=== PATIENT | male | born 1980 | race Caucasian/White ===

== ENCOUNTER 2020-12-15 16:47 | Inpatient (IN) | payer MEDICAID ==
[~2020-12-15] VITALS: Ht 182.9 cm; Wt 64.0 kg
[2020-12-15] MEDS ORDERED: LORazepam 1 MG tablet PO PRN (21:40)
[2020-12-15] MEDS ORDERED: acetaminophen 325mg tablet PO PRN ×2 (21:40)
[2020-12-15] MEDS ORDERED: loperamide 2mg capsule PO PRN (21:40)
[2020-12-15] MEDS ORDERED: traZODone 50mg tablet PO PRN (21:40)
[2020-12-15] MEDS ORDERED: NICOTINE POLACRILEX 2 MG LOZENGE BC PRN (21:40)
[2020-12-15] MEDS ORDERED: magnesium hydroxide 30ml (MOM) UD suspension PO PRN (21:40)
[2020-12-15] MEDS ORDERED: mag hydrox/Alum hydrox/simeth 30ml oral suspension PO PRN (21:40)
[2020-12-15 21:53] VITALS: BP 124/81
--- NOTE | 2020-12-15 22:12 | NUR ---
NURSING ADMISSION NOTE PT arrived on [facility] on 12/15/20 at 2140 from [facility]. Pt offered a shower, but he declined. 2 RN skin check completed, belongings inventoried. 5150 advisement served, pt verbalized understanding. Pt has had intense suicidal ideation for the past 3 days. He states he is hearing voices telling him to kill himself. Pt states he would cut his throat and slit his wrists. He also states that if his uncles guns were not locked up he would have wanted to do it that way. Pt feels that he has nothing left to live for. Pt is currently residing in his girlfriends [place]. He sleeps in a tent and his girlfriend sleeps in another tent. He feels like his girlfriend is un-supportive. Past suicide attempt in 2019 by jumping off a bridge. Hx of multiple psychiatric hospitalizations and conservatorship. He is not currently conserved. Hx of schizophrenia, anxiety, depression, and insomnia.
[2020-12-15] MEDS ORDERED: OLAN10TA19 PO (22:19)
[2020-12-15] MEDS ORDERED: TRIH2TAB3 PO (22:19)
[2020-12-15] MEDS ORDERED: RISP2TAB85 PO (22:19)
[2020-12-15] MEDS ORDERED: BENZ1TAB8 PO (22:19)
[2020-12-15] MEDS ORDERED: risperiDONE 0.5mg tablet PO PRN (22:30)
[2020-12-15] MEDS ORDERED: benztropine 1mg tablet PO PRN (22:30)
[2020-12-16] MEDS: trihexyphenidyl 2mg tablet PO SCH ×2 (07:41→20:11)
[2020-12-16 07:51] VITALS: BP 129/68
[2020-12-16] MEDS: nicotine 21mg patch - 24 hr TD SCH (08:00)
[2020-12-16 08:34] LABS: CHOL/HDL RATIO 2.9 (0.00-4.99); CHOLESTEROL 132 MG/DL (0-200); HDL CHOLESTEROL 45 MG/DL (35-60); LDL CHOLESTEROL 82 MG/DL (50-100); TRIGLYCERIDES 33 MG/DL (20-135)
[2020-12-16 08:41] LABS: HEMOGLOBIN A1C 5.5 % (4.5-6.2)
--- NOTE | 2020-12-16 11:11 | NUR ---
Nursing Progress Note: Legal hold:5150 Client on voluntary/involuntary status for DTS. Report received from nurse with use of SBAR from Mary MOREJON Why are they here: PT arrived on [facility] on 12/15/[address] [facility]. Pt offered a shower, but he declined. 2 RN skin check completed, belongings inventoried. 5150 advisement served, pt verbalized understanding. Pt has had intense suicidal ideation for the past 3 days. He states he is hearing voices telling him to kill himself. Pt states he would cut his throat and slit his wrists. He also states that if his uncles guns were not locked up he would have wanted to do it that way. Pt feels that he has nothing left to live for. Pt is currently residing in his girlfriends uncles [facility]. He sleeps in a tent and his girlfriend sleeps in another tent. He feels like his girlfriend is un-supportive. Past suicide attempt in 2019 by jumping off a bridge. Hx of multiple psychiatric hospitalizations and conservatorship. He is not currently conserved. Hx of schizophrenia, anxiety, depression, and insomnia. Assessment What has happened this shift: Patient was up early this morning, this wrtier introduced my self, patient answers all question with yes cristopher and is very polite.Hakann states that he is here because he was taking his medication all wrong, I was taking them backwards. Patient denies drup use other thatn weed, "I gave my [place] and pipe to Елена at [facility] when I went there for help. I live in a tent in a horse [place], I feed all the horses and I have lived there for the past 12 years. Patient request a shower and have a staff watch him shave. Patient states he will return to his tent in the [place]. Today patient states he will not harm him self while here at [facility], but needs medication adjustment before he can contract for safety for discharge. S/I, H/I: Denies, "I needed help so I am already feeling better" A/VH: Denies Sleep:Per NOC 6.5 ADL's: Independent Group attendance:N/A Were meds taken:Yes, Gladly Any med S/E None noted Mental Status Exam Appearance:unkempt Eye contact:Good Behavior: some what hypo manic Speech:normal rate and rythum Mood:"I am glas I am safe" Affect:congurent with mood Thought process:intact, forward thinking Thought Content:"How long do you think I will be here" Cognition:good Insight:fair, "I went to [facility] because I was feeling suicidal" Judgment:fair Interventions PRN's used: none Therapeutic interventions:Maintained a safe and supportive environment, ensured contract for safety, provided clear and simple instructions, monitored behaviors and need for intervention, provided active listening and positive encouragement, and maintained Q 15min safety checks. Restraints/seclusion/emergency medication: N/A Restraints/seclusion/emergency medication:N/A Justification of Continued Inpatient Treatment: Roberth was admitted last evening for suicidal thougths with a plan to cut self or use a gun that he has access to. Today patient needs more time in this controlled enviorment along with medication evaluation. Patient is a long time patient with [facility] and is familiar with his services.
--- NOTE | 2020-12-16 11:51 | NUR ---
Assessment Presenting Issues: Pt was 5150 by [facility] due to concerns associated with DTS, and sent to [facility] for medical clearance. Pt admitted to [facility] for stabilization support. Interventions: SS met w/pt and utilized Motivational Interviewing & CBT strategies to complete a bio-psychosocial assessment & treatment planning. Pt signed KAROLINA & TP. Plan: SS will continue to engage pt in tp activities and dcp when appropriate. TERELL Huynh Addendum: 12/17/20 at 1208 by Lorena Blanc SS Amended: Links added.
[2020-12-16] MEDS: cephalexin 500mg capsule PO SCH (16:19)
--- NOTE | 2020-12-16 17:20 | NUR ---
Patient has lateral heel blisters from wearing his boots, approx 5-6cm across on both, patient is started on Keflex, patient took first does and tolerated well. Per Dr. Holloway keep dry and clean.
[2020-12-16 19:53] VITALS: BP 116/84
[2020-12-16] MEDS: lactobacillus rhamnosus 10,000 MMU CELLS/CAPSULE PO SCH (20:11)
[2020-12-16] MEDS ORDERED: olanzapine 10mg tablet PO SCH (21:00)
--- NOTE | 2020-12-17 01:51 | NUR ---
Nursing Progress Note: Legal hold: 5150 Client on involuntary status for DTS. Report received from DARLEEN Sears with use of SBAR Why are they here: PT arrived on [facility] on 12/15/20 at 2140 from [facility]. Pt offered a shower, but he declined. 2 RN skin check completed, belongings inventoried. 5150 advisement served, pt verbalized understanding. Pt has had intense suicidal ideation for the past 3 days. He states he is hearing voices telling him to kill himself. Pt states he would cut his throat and slit his wrists. He also states that if his uncles guns were not locked up he would have wanted to do it that way. Pt feels that he has nothing left to live for. Pt is currently residing in his girlfriends uncles barn. He sleeps in a tent and his girlfriend sleeps in another tent. He feels like his girlfriend is un-supportive. Past suicide attempt in 2019 by jumping off a bridge. Hx of multiple psychiatric hospitalizations and conservatorship. He is not currently conserved. Hx of schizophrenia, anxiety, depression, and insomnia. Assessment What has happened this shift: The patient was seen at bedside for 1:1. He reports being, "much better." He says now that he's back on his medication, and taking it correctly, his voices have resolved, and he's no longer feeling suicidal. When asked about his mood, he stated, "doing great, mood is good." The patient feels as if he will be good enough to discharge when his hold is up. S/I, H/I: Denies. A/VH: Denies. Sleep: See sleep assessment ADL's: Independent Group attendance:N/A Were meds taken: Yes Any med S/E: None reported or observed. Mental Status Exam Appearance: Clean, well groomed in his own street clothes. Eye contact: Good Behavior: Pleasant, cooperative, outgoing. Speech: Normal Mood: "Great" Affect: Bright Thought process: Logical, linear, goal oriented. Thought Content: Discharge Cognition: A/O X4 Insight: Fair Judgment: Poor Interventions PRN's used: none Therapeutic interventions:Maintained a safe and supportive environment, ensured contract for safety, provided clear and simple instructions, monitored behaviors and need for intervention, provided active listening and positive encouragement, and maintained Q 15min safety checks. Restraints/seclusion/emergency medication: Justification of Continued Inpatient Treatment: Patient was admitted last evening for suicidal thoughts with a plan to cut self or use a gun that he has access to. Today, patient needs more time in this controlled environment along with medication evaluation. Patient is a long time patient with [facility] and is familiar with his services.
[2020-12-17 07:48] VITALS: BP 112/81
[2020-12-17] MEDS: lactobacillus rhamnosus 10,000 MMU CELLS/CAPSULE PO SCH (07:50)
[2020-12-17] MEDS: trihexyphenidyl 2mg tablet PO SCH (07:50)
[2020-12-17] MEDS: cephalexin 500mg capsule PO SCH ×2 (07:50)
[2020-12-17] MEDS: nicotine 21mg patch - 24 hr TD SCH (07:51)
--- NOTE | 2020-12-17 12:23 | NUR ---
CM: SS had t/c with pt's CM-Dominga @[facility] and inquired about support pt currently receives via [facility]. Per t/c Dominga will contact pt following d/c to assess for any additional support that pt may need. Plan: SS will engage pt's [facility] CM in dcp activities when appropriate. QUIN HuynhW Addendum: 12/17/20 at 1225 by Lorena Blanc Amended: Links added.
--- NOTE | 2020-12-17 14:04 | NUR ---
Pt. attended group today. We discussed the three different communication styles that people can fall into it Passive, Assertive and Aggressive. They were asked to try to express which one they felt their communication style fell into and then which one they would like to be. Pt. was in a bright mood, he was open and friendly. He engaged immediately in group, asking questions and volunteering to read parts of the worksheet for the group. He identified himself as having some passive traits but felt he also leaned toward Assertive in his style of communication. He was alert and oriented X 4. His thought content was WNL. His thought process was linear and goal directed toward the task at hand. He reported at the end of the session that he had enjoyed the group. He reported he is looking forward to going home tomorrow and denied feeling suicidal today. LOS- Ayah Sandy LCSW
[2020-12-17] MEDS ORDERED: TRIH5TAB3 PO (15:21)
[2020-12-17] MEDS ORDERED: RISP2TAB85 PO (15:21)
[2020-12-17] MEDS ORDERED: OLAN10TA19 PO (15:21)
[2020-12-17] MEDS ORDERED: BENZ1TAB8 PO (15:21)
[2020-12-17] MEDS ORDERED: LACT1CAP26 PO (15:21)
[2020-12-17] MEDS ORDERED: CEPH-585 PO (15:21)
--- NOTE | 2020-12-17 16:04 | NUR ---
DCP Presenting Issues: Per t/c with attending physician, pt will d/c this afternoon. Interventions: SS had t/c with [facility] and coordinated a post-hospital f/u for pt, and transportation to [facility] for pt to try and see his CM about his belongings. SS met w/pt & reviewed dcp with him, pt asked for bus passes to get home from [facility], pt was given 2 bus passes. Plan: Pt to d/c and [facility] TAD will send a catering truck driver to pick him up. Lorena Blanc LCSW Addendum: 12/17/20 at 1623 by Lorena Blanc Amended: Links added.
--- NOTE | 2020-12-17 16:25 | NUR ---
hydrogen cell tender Note: RN gave patient discharge instructions. Patient verbalized understanding. Patient has all his belongings. Patient denies suicidal/homicidal ideation. Patient denies audio/visual hallucinations. Patient picked up by [facility] gas truck driver and taking patient to [place]. Patient lives in a tent in a barn in [place]. Patient's medication were called into the [place] pharmacy. RN overheard patient with a pleasant conversation with his girlfriend. Patient is happy to be leaving. Patient ambulatory, steady gait with Tech Crystal to Main Lobby with [facility] Escrow Manager
== END 2020-12-17 16:25 | disposition home or self-care (01) | DRG 750 ==
LOC: ADULT MH 21:07
PROVIDERS: ADMIT Psychiatry & Neurology Psychiatry; ATTEND Psychiatry & Neurology Psychiatry
DX: F20.9 Schizophrenia, unspecified (principal); F10.231 Alcohol dependence with withdrawal delirium; R45.851 Suicidal ideations; Z91.14 Patient's other noncompliance with medication regimen; L03.115 Cellulitis of right lower limb; F17.210 Nicotine dependence, cigarettes, uncomplicated; S90.821A Blister (nonthermal), right foot, initial encounter; X58.XXXA Exposure to other specified factors, initial encounter; F12.10 Cannabis abuse, uncomplicated; F15.10 Other stimulant abuse, uncomplicated; Z91.5 Personal history of self-harm; Z79.899 Other long term (current) drug therapy; Y93.89 Activity, other specified; Y92.89 Other specified places as the place of occurrence of the external cause; Y99.8 Other external cause status
CPT/HCPCS: 36415; 80061; 83036; 87081

== ENCOUNTER 2020-12-21 04:48 | Emergency (ER) | payer MEDICAID ==
[~2020-12-21] VITALS: Ht 182.9 cm; Wt 63.1 kg
[~2020-12-21 04:48] MED LIST: BENZ1TAB8 PO; CEPH-585 PO; LACT1CAP26 PO; OLAN10TA19 PO; RISP2TAB85 PO; TRIH5TAB3 PO
[2020-12-21 04:51] VITALS: BP 116/75
--- NOTE | 2020-12-21 06:27 | NUR ---
Physician verbally reviewed discharge instructions with patient. Patient was upset and left before receiving discharge paperwork plodding [employer].
== END 2020-12-21 06:29 | disposition home or self-care (01) ==
LOC: ER 04:49
DX: R45.851 Suicidal ideations (principal); F20.9 Schizophrenia, unspecified; F15.90 Other stimulant use, unspecified, uncomplicated; Z59.0 Homelessness; Z79.899 Other long term (current) drug therapy
CPT/HCPCS: 99285

== ENCOUNTER 2021-01-14 20:46 | Emergency (ER) | payer MEDICAID ==
[~2021-01-14] VITALS: Ht 182.9 cm; Wt 63.4 kg
[2021-01-14 21:04] VITALS: BP 119/73
[2021-01-14 22:53] LABS: BASOPHILS # (AUTO) 0.1 X10'3 (0-0.2); BASOPHILS % (AUTO) 0.8 % (0-1); EOSINOPHILS # (AUTO) 0.3 X10'3 (0-0.9); EOSINOPHILS % (AUTO) 3.1 % (0-6); HEMATOCRIT 39.2 % (42.0-52.0); HEMOGLOBIN 13.2 g/dl (14.0-17.9); LYMPHOCYTES # (AUTO) 3.1 X10'3 (1.1-4.8); LYMPHOCYTES % (AUTO) 28.4 % (21-51); MEAN CORPUSCULAR HEMOGLOBIN 29.9 PG (27.0-31.0); MEAN CORPUSCULAR HGB CONC 33.6 g/dL (33.0-36.5); MEAN CORPUSCULAR VOLUME 89.1 FL (78-98); MEAN PLATELET VOLUME 6.6 FL (7.4-10.4); MONOCYTES # (AUTO) 1.3 X10'3 (0-0.9); MONOCYTES % (AUTO) 11.8 % (2-12); NEUTROPHILS # (AUTO) 6.1 X10'3 (1.8-7.7); NEUTROPHILS % (AUTO) 55.9 % (42-75); PLATELET COUNT 258 X10'3 (140-440); RED BLOOD COUNT 4.39 X10'6 (4.70-6.10); RED CELL DISTRIBUTION WIDTH 14.7 % (11.5-14.5); WHITE BLOOD COUNT 10.8 X10'3 (4.5-11.0)
[2021-01-14 22:55] LABS: CLARITY,URINE CLEAR (Clear); COLOR,URINE STRAW (Yellow); GLUCOSE, URINE NEGATIVE (Neg); KETONES,URINE NEGATIVE (Neg); LEUKOCYTE ESTERASE ,URINE NEGATIVE (Neg); NITRITES, URINE NEGATIVE (Neg); OCCULT BLOOD,URINE NEGATIVE (Neg); PH,URINE 6.5 (4.8-8.0); PROTEIN,URINE NEGATIVE (Neg); UROBILINOGEN,URINE 0.2 E.U/dL (0.2-1.0)
[2021-01-14 22:56] LABS: UA COLLECTION TYPE VOIDED
[2021-01-14 23:08] LABS: URINE AMPHETAMINE SCREEN NEGATIVE (Neg); URINE BARBITUATE SCREEN NEGATIVE (Neg); URINE BENZODIAZEPINES SCREEN NEGATIVE (Neg); URINE CANNABINOID SCREEN POSITIVE (Neg); URINE COCAINE SCREEN NEGATIVE (Neg); URINE METHADONE SCREEN NEGATIVE (Neg); URINE OPIATE SCREEN NEGATIVE (Neg); URINE PHENCYCLIDINE SCREEN NEGATIVE (Neg)
[2021-01-14 23:13] LABS: ALANINE AMINOTRANSFERASE 41 U/L (12-78); ALBUMIN 3.2 G/DL (3.4-5.0); ALBUMIN/GLOBULIN RATIO 0.9 (1.1-1.5); ALKALINE PHOSPHATASE 88 IU/L (46-116); ANION GAP 8 (8-16); ASPARTATE AMINO TRANSFERASE 37 U/L (10-37); BILIRUBIN,TOTAL 0.2 MG/DL (0.1-1.0); BLOOD UREA NITROGEN 9 MG/DL (7-18); BUN/CREATININE RATIO 12.9 (5.4-32.0); CALCIUM 8.4 MG/DL (8.5-10.1); CHLORIDE 106 MMOL/L (99-107); GLUCOSE 121 MG/DL (70-104); POTASSIUM 3.5 MMOL/L (3.5-5.1); SODIUM 141 MMOL/L (135-145); TOTAL CARBON DIOXIDE 26.8 MMOL/L (24-32); TOTAL PROTEIN 6.6 G/DL (6.4-8.2); eGFR > 90 ML/MIN
[2021-01-14 23:17] LABS: ETHANOL < 0.010 GM/DL (0.0-0.010)
--- NOTE | 2021-01-15 02:55 | NUR ---
pt asleep in room, resp even and unlabored, sitter outside the room.
--- NOTE | 2021-01-15 04:07 | NUR ---
pt asleep. sitter outside the room.
--- NOTE | 2021-01-15 06:29 | NUR ---
Patient resting quietly, no signs/symptoms of distress.
--- NOTE | 2021-01-15 08:15 | NUR ---
Patient resting quietly, no signs/symptoms of distress.
--- NOTE | 2021-01-15 08:58 | NUR ---
Patient asking for bandaids, juice, and pain medication. Juice and bandaids provided. MD at bedside to discuss pain control with patient.
[2021-01-15] MEDS ORDERED: acetaminophen 325mg tablet PO ONE (09:00)
[2021-01-15] MEDS ORDERED: ibuprofen tablet 400 MG TABLET PO ONE (09:00)
[2021-01-15] MEDS ORDERED: LORazepam 1 MG tablet PO ONE (09:40)
--- NOTE | 2021-01-15 10:27 | NUR ---
ok not to give ativan per dr. alvarado. dc orders placed.
== END 2021-01-15 11:03 | disposition home or self-care (01) ==
LOC: ER 20:47
DX: F20.9 Schizophrenia, unspecified (principal); Z20.822 Contact with and (suspected) exposure to COVID-19; F32.9 Major depressive disorder, single episode, unspecified; F17.200 Nicotine dependence, unspecified, uncomplicated; F12.90 Cannabis use, unspecified, uncomplicated; F15.90 Other stimulant use, unspecified, uncomplicated; Z72.89 Other problems related to lifestyle; Z59.0 Homelessness; Z79.2 Long term (current) use of antibiotics; Z79.899 Other long term (current) drug therapy
CPT/HCPCS: 36415; 73630; 73700; 80053; 80305; 80320; 81003; 84443; 85025; 87426; 99285

== ENCOUNTER 2021-02-09 03:12 | Emergency (ER) | payer MEDICAID ==
[~2021-02-09] VITALS: Ht 182.9 cm; Wt 59.0 kg
--- NOTE | 2021-02-09 03:29 | NUR ---
pt states he has hx diagnosis of schizophrenia. reports hearing command auditory hallucinations to harm himself. denies homicidal ideation. denies paranoia. endorses meth and marijuana use with "a little" etoh. per [employer], pt has been arrested multiple times this week for drunk in public and disorderly conduct. pt states he has schizophrenia medications and hasnt taken in 3 days.
[2021-02-09 03:48] LABS: BASOPHILS # (AUTO) 0.1 X10'3 (0-0.2); BASOPHILS % (AUTO) 0.8 % (0-1); EOSINOPHILS # (AUTO) 0.1 X10'3 (0-0.9); EOSINOPHILS % (AUTO) 1.1 % (0-6); HEMATOCRIT 37.3 % (42.0-52.0); HEMOGLOBIN 12.6 g/dl (14.0-17.9); LYMPHOCYTES # (AUTO) 2.2 X10'3 (1.1-4.8); LYMPHOCYTES % (AUTO) 21.7 % (21-51); MEAN CORPUSCULAR HGB CONC 33.6 g/dL (33.0-36.5); MEAN CORPUSCULAR VOLUME 89.2 FL (78-98); MEAN PLATELET VOLUME 6.7 FL (7.4-10.4); MONOCYTES # (AUTO) 1.4 X10'3 (0-0.9); MONOCYTES % (AUTO) 13.8 % (2-12); NEUTROPHILS # (AUTO) 6.3 X10'3 (1.8-7.7); NEUTROPHILS % (AUTO) 62.6 % (42-75); PLATELET COUNT 312 X10'3 (140-440); RED BLOOD COUNT 4.19 X10'6 (4.70-6.10); RED CELL DISTRIBUTION WIDTH 14.9 % (11.5-14.5); WHITE BLOOD COUNT 10.1 X10'3 (4.5-11.0)
[2021-02-09] MEDS ORDERED: NO HOME MEDS (03:49)
--- NOTE | 2021-02-09 03:50 | NUR ---
pt reports to this RN that he was previously lying and he hasnt taken any medications since he was last discharged from here weeks ago.
[2021-02-09 04:02] LABS: URINE AMPHETAMINE SCREEN POSITIVE (Neg); URINE BARBITUATE SCREEN NEGATIVE (Neg); URINE BENZODIAZEPINES SCREEN NEGATIVE (Neg); URINE CANNABINOID SCREEN POSITIVE (Neg); URINE COCAINE SCREEN NEGATIVE (Neg); URINE METHADONE SCREEN NEGATIVE (Neg); URINE OPIATE SCREEN NEGATIVE (Neg); URINE PHENCYCLIDINE SCREEN NEGATIVE (Neg)
[2021-02-09 04:03] LABS: ALANINE AMINOTRANSFERASE 45 U/L (12-78); ALBUMIN 3.6 G/DL (3.4-5.0); ALBUMIN/GLOBULIN RATIO 0.9 (1.1-1.5); ALKALINE PHOSPHATASE 81 IU/L (46-116); ANION GAP 10 (8-16); ASPARTATE AMINO TRANSFERASE 62 U/L (10-37); BILIRUBIN,TOTAL 0.8 MG/DL (0.1-1.0); BLOOD UREA NITROGEN 17 MG/DL (7-18); BUN/CREATININE RATIO 18.9 (5.4-32.0); CALCIUM 8.4 MG/DL (8.5-10.1); CHLORIDE 106 MMOL/L (99-107); GLUCOSE 99 MG/DL (70-104); POTASSIUM 3.5 MMOL/L (3.5-5.1); SODIUM 141 MMOL/L (135-145); TOTAL CARBON DIOXIDE 25.1 MMOL/L (24-32); TOTAL PROTEIN 7.4 G/DL (6.4-8.2); eGFR > 90 ML/MIN
[2021-02-09 04:08] LABS: ETHANOL < 0.010 GM/DL (0.0-0.010)
--- NOTE | 2021-02-09 06:05 | NUR ---
chart sent to [facility]
--- NOTE | 2021-02-09 07:15 | NUR ---
Patient ambulated independently to overflow bed 24. Pt slightly disorganized, but cooperative. Security present.
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
--- NOTE | 2021-02-09 11:07 | NUR ---
Patient required redirection as he was in the bathroom contiuously flushing the toilet. Pt was ask several times to unlock the door and return to his room. Pt was cooperative, but continues to be slightly elevated. Pt is food focused.
--- NOTE | 2021-02-09 13:05 | NUR ---
Covid test obtained. Pt sitting in bed finishing up his lunch. Pt wants to go up to [facility] as his neighbor was accepted. Explained to pt we are still waiting placement for him.
--- NOTE | 2021-02-09 13:45 | NUR ---
Received phone call from Vijaya at [facility]. Patient has been accepted and will be picked tonight between [phone].
[2021-02-09 14:04] LABS: CLARITY,URINE CLOUDY (Clear); COLOR,URINE YELLOW (Yellow); GLUCOSE, URINE NEGATIVE (Neg); KETONES,URINE NEGATIVE (Neg); LEUKOCYTE ESTERASE ,URINE NEGATIVE (Neg); NITRITES, URINE NEGATIVE (Neg); OCCULT BLOOD,URINE NEGATIVE (Neg); PH,URINE 5.5 (4.8-8.0); PROTEIN,URINE 30 mg/dl (Neg); UROBILINOGEN,URINE 0.2 E.U/dL (0.2-1.0)
[2021-02-09 14:06] LABS: UA COLLECTION TYPE CLN CATCH MIDSTREAM
[2021-02-09 14:09] LABS: HYALINE CASTS 0-3 /LPF (NEGATIVE); MUCUS STRANDS FEW /LPF (Neg); SQUAMOUS EPITHELIAL CELL,UR FEW /LPF (FEW)
[2021-02-09 14:11] LABS: BACTERIA,URINE 2+ /HPF (Neg); CAL OXALATE CRYSTALS 4+ /HPF (NEGATIVE); RBC,URINE 0-2 /HPF (0-2); WBC,URINE 0-4 /HPF (0-4)
--- NOTE | 2021-02-09 15:35 | NUR ---
Patient sleeping comfortably with no distress noted.
[2021-02-09 17:06] VITALS: BP 132/96
--- NOTE | 2021-02-09 18:35 | NUR ---
Patient sitting up in bed, even and unlabored respirations. Waiting ont [place] to facilty. Per report should be arriving around 2100.
--- NOTE | 2021-02-09 19:35 | NUR ---
Patient resting in bed, even and unlaberod respirations. No further needs at this time.
--- NOTE | 2021-02-09 20:24 | NUR ---
Patient provided with apple sauce and crackers. Ambulated to and from bathroom with steady gait.
[2021-02-09] MEDS ORDERED: nicotine 21mg patch - 24 hr TD ONE (20:30)
== END 2021-02-09 21:02 ==
LOC: ER 03:13
DX: R45.851 Suicidal ideations (principal); Z20.822 Contact with and (suspected) exposure to COVID-19; F15.10 Other stimulant abuse, uncomplicated; F32.9 Major depressive disorder, single episode, unspecified; F20.9 Schizophrenia, unspecified; F12.90 Cannabis use, unspecified, uncomplicated; Z72.89 Other problems related to lifestyle; Z59.0 Homelessness
CPT/HCPCS: 36415; 80053; 80305; 80320; 81001; 85025; 87635; 99285; C9803

== ENCOUNTER 2021-04-07 20:13 | Emergency (ER) | payer MEDICAID ==
[~2021-04-07] VITALS: Ht 172.7 cm; Wt 70.0 kg
[~2021-04-07 20:13] MED LIST changes: -BENZ1TAB8 PO; -CEPH-585 PO; -LACT1CAP26 PO; +NO HOME MEDS; -OLAN10TA19 PO; -RISP2TAB85 PO; -TRIH5TAB3 PO
[2021-04-07 20:57] LABS: BASOPHILS # (AUTO) 0.1 X10'3 (0-0.2); BASOPHILS % (AUTO) 0.6 % (0-1); EOSINOPHILS # (AUTO) 0.2 X10'3 (0-0.9); EOSINOPHILS % (AUTO) 1.5 % (0-6); HEMATOCRIT 37.5 % (42.0-52.0); HEMOGLOBIN 12.7 g/dl (14.0-17.9); LYMPHOCYTES # (AUTO) 2.4 X10'3 (1.1-4.8); LYMPHOCYTES % (AUTO) 23.3 % (21-51); MEAN CORPUSCULAR HEMOGLOBIN 29.7 PG (27.0-31.0); MEAN CORPUSCULAR HGB CONC 33.8 g/dL (33.0-36.5); MEAN CORPUSCULAR VOLUME 87.8 FL (78-98); MEAN PLATELET VOLUME 6.8 FL (7.4-10.4); MONOCYTES # (AUTO) 1.5 X10'3 (0-0.9); MONOCYTES % (AUTO) 14.3 % (2-12); NEUTROPHILS # (AUTO) 6.3 X10'3 (1.8-7.7); NEUTROPHILS % (AUTO) 60.3 % (42-75); PLATELET COUNT 259 X10'3 (140-440); RED BLOOD COUNT 4.27 X10'6 (4.70-6.10); RED CELL DISTRIBUTION WIDTH 14.3 % (11.5-14.5); WHITE BLOOD COUNT 10.5 X10'3 (4.5-11.0)
[2021-04-07 20:58] LABS: CLARITY,URINE CLEAR (Clear); COLOR,URINE YELLOW (Yellow); GLUCOSE, URINE NEGATIVE (Neg); KETONES,URINE NEGATIVE (Neg); LEUKOCYTE ESTERASE ,URINE NEGATIVE (Neg); NITRITES, URINE NEGATIVE (Neg); OCCULT BLOOD,URINE NEGATIVE (Neg); PH,URINE 6.5 (4.8-8.0); PROTEIN,URINE NEGATIVE (Neg)
[2021-04-07 21:00] LABS: UA COLLECTION TYPE CLN CATCH MIDSTREAM; URINE AMPHETAMINE SCREEN POSITIVE (Neg); URINE BARBITUATE SCREEN NEGATIVE (Neg); URINE BENZODIAZEPINES SCREEN NEGATIVE (Neg); URINE CANNABINOID SCREEN POSITIVE (Neg); URINE COCAINE SCREEN NEGATIVE (Neg); URINE METHADONE SCREEN NEGATIVE (Neg); URINE OPIATE SCREEN NEGATIVE (Neg); URINE PHENCYCLIDINE SCREEN NEGATIVE (Neg)
[2021-04-07 21:11] LABS: ALANINE AMINOTRANSFERASE 38 U/L (12-78); ALBUMIN 3.5 G/DL (3.4-5.0); ALKALINE PHOSPHATASE 91 IU/L (46-116); ANION GAP 7 (8-16); ASPARTATE AMINO TRANSFERASE 44 U/L (10-37); BILIRUBIN,TOTAL 0.2 MG/DL (0.1-1.0); BLOOD UREA NITROGEN 12 MG/DL (7-18); BUN/CREATININE RATIO 15.8 (5.4-32.0); CALCIUM 7.8 MG/DL (8.5-10.1); CHLORIDE 107 MMOL/L (99-107); CREATININE 0.76 MG/DL (0.60-1.10); GLUCOSE 105 MG/DL (70-104); POTASSIUM 3.3 MMOL/L (3.5-5.1); SODIUM 142 MMOL/L (135-145); TOTAL CARBON DIOXIDE 27.9 MMOL/L (24-32); TOTAL PROTEIN 6.9 G/DL (6.4-8.2); eGFR > 90 ML/MIN
--- NOTE | 2021-04-07 21:30 | NUR ---
security called for stand by as pt was refusing to change into green scrubs or do covid test. attempted to redirect multiple times and pt closed eyes and ignored staff. security arrived and pt quickly changed into green scrubs, stating "i didnt know what you guys wanted, youre mean, you scare me" while changing. pt now laying in bed without issue.
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
--- NOTE | 2021-04-07 22:41 | NUR ---
faxed packet to [place] office
--- NOTE | 2021-04-08 01:08 | NUR ---
PT RESTING IN BED, LAYING ON BACK WITH NO SIGNS OF DISTRESS AT THIS TIME, EVEN UNLABORED RESPIRATIONS.
[2021-04-08 06:02] VITALS: BP 113/72
--- NOTE | 2021-04-08 08:15 | NUR ---
RN assumed care of pt. Pt. lying in bed asleep. Normal R&R of respirations observed. Pt. in no apparent distress.
[2021-04-08] MEDS ORDERED: potassium Cl 20 mEq SR tablet PO STA (10:09)
[2021-04-08] MEDS ORDERED: nicotine 21mg patch - 24 hr TD ONE (10:10)
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
== END 2021-04-08 12:55 ==
LOC: ER 20:13
DX: R45.851 Suicidal ideations (principal); M79.671 Pain in right foot; M79.672 Pain in left foot; F32.9 Major depressive disorder, single episode, unspecified; F20.9 Schizophrenia, unspecified; F12.90 Cannabis use, unspecified, uncomplicated; F15.90 Other stimulant use, unspecified, uncomplicated; Z59.0 Homelessness; Z72.89 Other problems related to lifestyle
CPT/HCPCS: 36415; 80053; 80305; 81003; 85025; 87635; 99285; C9803

== ENCOUNTER 2021-07-27 01:13 | Emergency (ER) | payer MEDICAID ==
[~2021-07-27] VITALS: Ht 182.9 cm; Wt 59.0 kg
[2021-07-27 02:09] LABS: BASOPHILS # (AUTO) 0.1 X10'3 (0-0.2); BASOPHILS % (AUTO) 0.7 % (0-1); EOSINOPHILS # (AUTO) 0.1 X10'3 (0-0.9); EOSINOPHILS % (AUTO) 1.4 % (0-6); HEMATOCRIT 41.2 % (42.0-52.0); HEMOGLOBIN 13.9 g/dl (14.0-17.9); LYMPHOCYTES # (AUTO) 3.1 X10'3 (1.1-4.8); LYMPHOCYTES % (AUTO) 32.6 % (21-51); MEAN CORPUSCULAR HEMOGLOBIN 28.8 PG (27.0-31.0); MEAN CORPUSCULAR HGB CONC 33.8 g/dL (33.0-36.5); MEAN CORPUSCULAR VOLUME 85.3 FL (78-98); MEAN PLATELET VOLUME 6.8 FL (7.4-10.4); NEUTROPHILS # (AUTO) 5.1 X10'3 (1.8-7.7); NEUTROPHILS % (AUTO) 54.3 % (42-75); PLATELET COUNT 287 X10'3 (140-440); RED BLOOD COUNT 4.83 X10'6 (4.70-6.10); RED CELL DISTRIBUTION WIDTH 15.7 % (11.5-14.5); WHITE BLOOD COUNT 9.4 X10'3 (4.5-11.0)
[2021-07-27 02:23] LABS: ALANINE AMINOTRANSFERASE 49 U/L (12-78); ALBUMIN 3.6 G/DL (3.4-5.0); ALBUMIN/GLOBULIN RATIO 1.1 (1.1-1.5); ALKALINE PHOSPHATASE 80 IU/L (46-116); ANION GAP 6 (8-16); ASPARTATE AMINO TRANSFERASE 44 U/L (10-37); BILIRUBIN,TOTAL 0.3 MG/DL (0.1-1.0); BLOOD UREA NITROGEN 15 MG/DL (7-18); BUN/CREATININE RATIO 19.2 (5.4-32.0); CALCIUM 8.5 MG/DL (8.5-10.1); CHLORIDE 106 MMOL/L (99-107); CREATININE 0.78 MG/DL (0.60-1.10); ETHANOL < 0.010 GM/DL (0.0-0.010); GLUCOSE 108 MG/DL (70-104); POTASSIUM 3.7 MMOL/L (3.5-5.1); SODIUM 140 MMOL/L (135-145); TOTAL PROTEIN 6.9 G/DL (6.4-8.2); eGFR > 90 ML/MIN
--- NOTE | 2021-07-27 06:34 | NUR ---
The patient moved to bed 24 in the ER. He is easily agitated. He continues to endorse suicidal thoughts. He is begging for food and stated he has not eaten for two days and he has been living on the streets. He reports frequent auditory hallucinations but denies that they are command in nature. He was unable to state any medications that he currently takes.
[2021-07-27 07:01] LABS: URINE AMPHETAMINE SCREEN POSITIVE (Neg); URINE BARBITUATE SCREEN NEGATIVE (Neg); URINE BENZODIAZEPINES SCREEN NEGATIVE (Neg); URINE CANNABINOID SCREEN POSITIVE (Neg); URINE COCAINE SCREEN NEGATIVE (Neg); URINE METHADONE SCREEN NEGATIVE (Neg); URINE OPIATE SCREEN NEGATIVE (Neg); URINE PHENCYCLIDINE SCREEN NEGATIVE (Neg)
--- NOTE | 2021-07-27 07:22 | NUR ---
The patient's drug screen was predictably postive for amphetamines and THC.
--- NOTE | 2021-07-27 07:25 | NUR ---
Packet sent to [facility]
--- NOTE | 2021-07-27 08:47 | NUR ---
The patient awake for breakfast and ate 100%. He now appears to be sleeping.
--- NOTE | 2021-07-27 09:12 | NUR ---
Nadeem morajustine in ED - 07/27/21 at 0949 by MART The patient is authoratively stating that he is to be discharged because he owns the [facility] and he is the son of God.
--- NOTE | 2021-07-27 09:50 | NUR ---
THe patient appears to be sleeping
--- NOTE | 2021-07-27 10:26 | NUR ---
[facility] has evaluated the patient and they are keeping him on the 5150 hold.
--- NOTE | 2021-07-27 11:03 | NUR ---
The patient appears to be sleeping
--- NOTE | 2021-07-27 12:26 | NUR ---
The patient appears to be sleeping
--- NOTE | 2021-07-27 13:26 | NUR ---
The patient is being rude and demanding. Very irritable. Limits set.
[2021-07-27] MEDS ORDERED: OLANZapine 5mg rapidly disint. tablet PO ONE (13:58)
--- NOTE | 2021-07-27 14:10 | NUR ---
The patient has been easily agitated and irritable. Swearing, restless and reports hearing voices and feeling suicidal. He stated he has been off his medications for the past two months. Discussed the patient with Dr. Frank and orders received.
--- NOTE | 2021-07-27 15:41 | NUR ---
The patient appears to be sleeping
--- NOTE | 2021-07-27 17:08 | NUR ---
The patient appears to be sleeping
--- NOTE | 2021-07-27 20:05 | NUR ---
pt awoke briefly but did not want to discuss anyting. pt did report SI but denies any other complaints or needs.
--- NOTE | 2021-07-27 22:00 | NUR ---
Pt is sleeping, no s/s of distress noted.
--- NOTE | 2021-07-27 23:57 | NUR ---
pt continues to sleep, rr unlabored, no s/s of distress noted.
--- NOTE | 2021-07-28 01:53 | NUR ---
pt continues to sleep, rr unlabored, no s/s of distress noted.
--- NOTE | 2021-07-28 04:06 | NUR ---
pt appears to be sleeping
--- NOTE | 2021-07-28 07:05 | NUR ---
Pt was up a short time ago, agitated demanding "when am I going to be released." Security was called for stand-by. Explained to pt he was on a legal hold and [facility] will be in later this moring. Pt states "I am not suicidal anymore, I want to leave." "I have been patient for 2 days." Pt is now in bed, apoloigized for being "rude."
[2021-07-28 09:31] VITALS: BP 100/61
--- NOTE | 2021-07-28 09:31 | NUR ---
DISCHARGE NOTE: Pt was discharged from unit at 0920. Pt was A&Ox4. Pt was slightly agitated stating "I don't have my marijuana pipe." Pt was called a taxi to be transported to [facility] to speak with his case operator. Pt left with all personal belongings. Pt denies all mental health symptoms stating "I just want the fuck out of here." Per protocol pt was escorted outside to await taxi. Pt was reminded the importance of the follow up with his case operator.
== END 2021-07-28 09:35 | disposition home or self-care (01) ==
LOC: ER 01:13
DX: R45.851 Suicidal ideations (principal); Z20.822 Contact with and (suspected) exposure to COVID-19; F15.90 Other stimulant use, unspecified, uncomplicated; F32.9 Major depressive disorder, single episode, unspecified; F20.9 Schizophrenia, unspecified; F12.90 Cannabis use, unspecified, uncomplicated; Z59.00 Homelessness unspecified; Z72.89 Other problems related to lifestyle
CPT/HCPCS: 36415; 80053; 80305; 80320; 85025; 87635; 99285; C9803

== ENCOUNTER 2021-08-05 12:03 | Emergency (ER) | payer MEDICAID ==
[~2021-08-05] VITALS: Ht 182.9 cm; Wt 68.2 kg
[2021-08-05 12:52] VITALS: BP 116/75
== END 2021-08-05 14:55 | disposition left against medical advice (07) ==
LOC: ER 12:03
DX: M25.562 Pain in left knee (principal); Z53.21 Procedure and treatment not carried out due to patient leaving prior to being seen by health care provider

== ENCOUNTER 2021-09-11 21:39 | Emergency (ER) | payer MEDICAID ==
[~2021-09-11] VITALS: Ht 185.4 cm; Wt 65.9 kg
[2021-09-11 22:23] LABS: EOSINOPHILS # (AUTO) 0.1 X10'3 (0-0.9); RED CELL DISTRIBUTION WIDTH 14.8 % (11.5-14.5)
[2021-09-11 22:25] LABS: BASOPHILS # (AUTO) 0.1 X10'3 (0-0.2); BASOPHILS % (AUTO) 0.9 % (0-1); EOSINOPHILS % (AUTO) 1.5 % (0-6); HEMATOCRIT 37.5 % (42.0-52.0); HEMOGLOBIN 12.9 g/dl (14.0-17.9); LYMPHOCYTES # (AUTO) 1.8 X10'3 (1.1-4.8); LYMPHOCYTES % (AUTO) 21.4 % (21-51); MEAN CORPUSCULAR HEMOGLOBIN 29.5 PG (27.0-31.0); MEAN CORPUSCULAR HGB CONC 34.3 g/dL (33.0-36.5); MEAN PLATELET VOLUME 6.8 FL (7.4-10.4); MONOCYTES # (AUTO) 1.1 X10'3 (0-0.9); MONOCYTES % (AUTO) 12.5 % (2-12); NEUTROPHILS # (AUTO) 5.5 X10'3 (1.8-7.7); NEUTROPHILS % (AUTO) 63.7 % (42-75); PLATELET COUNT 256 X10'3 (140-440); RED BLOOD COUNT 4.36 X10'6 (4.70-6.10); WHITE BLOOD COUNT 8.6 X10'3 (4.5-11.0)
[2021-09-11 22:37] LABS: ANION GAP 8 (8-16); BLOOD UREA NITROGEN 16 MG/DL (7-18); BUN/CREATININE RATIO 18.2 (5.4-32.0); CHLORIDE 105 MMOL/L (99-107); CREATININE 0.88 MG/DL (0.60-1.10); GLUCOSE 124 MG/DL (70-104); POTASSIUM 3.5 MMOL/L (3.5-5.1); SODIUM 141 MMOL/L (135-145); TOTAL CARBON DIOXIDE 28.2 MMOL/L (24-32)
[2021-09-11 22:38] LABS: ALANINE AMINOTRANSFERASE 35 U/L (12-78); ALBUMIN 3.6 G/DL (3.4-5.0); ALBUMIN/GLOBULIN RATIO 1.2 (1.1-1.5); ALKALINE PHOSPHATASE 69 IU/L (46-116); ASPARTATE AMINO TRANSFERASE 38 U/L (10-37); BILIRUBIN,TOTAL 0.3 MG/DL (0.1-1.0); CALCIUM 8.6 MG/DL (8.5-10.1); ETHANOL < 0.010 GM/DL (0.0-0.010); TOTAL PROTEIN 6.6 G/DL (6.4-8.2); eGFR > 90 ML/MIN
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
--- NOTE | 2021-09-12 00:29 | NUR ---
The patient appears to be sleeping
--- NOTE | 2021-09-12 01:48 | NUR ---
The patient appears to be sleeping
--- NOTE | 2021-09-12 03:04 | NUR ---
The patient was awake and provided a urine specimen. He was given a snack and appears to be trying to go back to sleep
[2021-09-12 03:07] LABS: URINE AMPHETAMINE SCREEN POSITIVE (Neg); URINE BARBITUATE SCREEN NEGATIVE (Neg); URINE BENZODIAZEPINES SCREEN NEGATIVE (Neg); URINE CANNABINOID SCREEN POSITIVE (Neg); URINE COCAINE SCREEN NEGATIVE (Neg); URINE METHADONE SCREEN NEGATIVE (Neg); URINE OPIATE SCREEN NEGATIVE (Neg); URINE PHENCYCLIDINE SCREEN NEGATIVE (Neg)
--- NOTE | 2021-09-12 04:08 | NUR ---
Packet sent to [facility]
--- NOTE | 2021-09-12 05:03 | NUR ---
The patient appears to be sleeping
[2021-09-12 06:23] VITALS: BP 123/90
--- NOTE | 2021-09-12 06:30 | NUR ---
Received pt. sleeping in bed, rr are even and unlabored. He makes occassional body adjustments.
[2021-09-12] MEDS ORDERED: trihexyphenidyl 2mg tablet PO SCH (08:00)
--- NOTE | 2021-09-12 08:34 | NUR ---
Pt. sitting up eating breakfast at this time, he requests pain medication for chronic back pain and a nicotine patch. Will discuss with the MD
[2021-09-12] MEDS ORDERED: nicotine 21mg patch - 24 hr TD ONE (09:00)
[2021-09-12] MEDS ORDERED: ibuprofen tablet 400 MG TABLET PO ONE (09:00)
[2021-09-12] MEDS ORDERED: LORazepam 1 MG tablet PO PRN (09:00)
--- NOTE | 2021-09-12 09:19 | NUR ---
Pt. became increasingly agitated demanding to use his telephone to call the social security office and his girlfriend. He presented as paranoid delusional using frequent profanities and stating, "They are draining all my money!" Pt. was also hitting the railing of his bed and standing in his doorway staring at others intently stating, "What are they looking at?!" He was asked to go back to his bed and sit down, but refused. Pt's increased anxiety and agitation was endosed to Dr. Bhagat, and HA Salcedo was ordered. Also Ibuprofen for chronic back pain and a Nicotine patch were ordered. Addendum: 09/12/21 at 0938 by RYLEE Security was called and pt. was able to be de-escalated.
--- NOTE | 2021-09-12 09:46 | NUR ---
LEFT A MESSAGE WITH JAYDE PATTERSON'S GIRLFRIEND
--- NOTE | 2021-09-12 10:00 | NUR ---
1:1 completed at bedside, pt. was calm and cooperative with assessment. He currently denies any S/I and states, "I just want to go to the [facility]." Pt. denies all other MH s/s, however presents with poor impulse control at times but is able to be redirected.
--- NOTE | 2021-09-12 10:28 | NUR ---
Pt. is sleeping at this time, appears to be resting comfortably.
--- NOTE | 2021-09-12 12:39 | NUR ---
[facility] at bedside evaluating pt. at this time.
--- NOTE | 2021-09-12 13:08 | NUR ---
Pt. moved to bed 26.
--- NOTE | 2021-09-12 14:45 | NUR ---
Pt. continues to sleep at this time, laying on his rt. side.
[2021-09-12] MEDS ORDERED: OLANZAPINE 5 MG TABLET PO SCH (21:00)
== END 2021-09-12 15:38 | disposition home or self-care (01) ==
LOC: ER 21:39
DX: R45.851 Suicidal ideations (principal); Z20.822 Contact with and (suspected) exposure to COVID-19; F32.9 Major depressive disorder, single episode, unspecified; F20.9 Schizophrenia, unspecified; F12.90 Cannabis use, unspecified, uncomplicated; F15.90 Other stimulant use, unspecified, uncomplicated; Z72.89 Other problems related to lifestyle; Z56.0 Unemployment, unspecified; Z59.00 Homelessness unspecified
CPT/HCPCS: 36415; 80053; 80305; 80320; 84443; 85025; 87635; 99285; C9803

== ENCOUNTER 2021-10-13 21:14 | Emergency (ER) | payer MEDICAID ==
[~2021-10-13] VITALS: Ht 185.4 cm; Wt 67.2 kg
[2021-10-14 00:15] VITALS: BP 120/82
[2021-10-14 07:29] LABS: BASOPHILS # (AUTO) 0.1 X10'3 (0-0.2); BASOPHILS % (AUTO) 0.8 % (0-1); EOSINOPHILS # (AUTO) 0.1 X10'3 (0-0.9); EOSINOPHILS % (AUTO) 1.6 % (0-6); HEMATOCRIT 37.8 % (42.0-52.0); HEMOGLOBIN 12.8 g/dl (14.0-17.9); LYMPHOCYTES # (AUTO) 1.9 X10'3 (1.1-4.8); LYMPHOCYTES % (AUTO) 28.2 % (21-51); MEAN CORPUSCULAR HGB CONC 33.8 g/dL (33.0-36.5); MEAN CORPUSCULAR VOLUME 85.8 FL (78-98); MEAN PLATELET VOLUME 7.1 FL (7.4-10.4); MONOCYTES # (AUTO) 0.8 X10'3 (0-0.9); MONOCYTES % (AUTO) 12.5 % (2-12); NEUTROPHILS # (AUTO) 3.9 X10'3 (1.8-7.7); NEUTROPHILS % (AUTO) 56.9 % (42-75); PLATELET COUNT 222 X10'3 (140-440); RED BLOOD COUNT 4.41 X10'6 (4.70-6.10); RED CELL DISTRIBUTION WIDTH 14.7 % (11.5-14.5); WHITE BLOOD COUNT 6.8 X10'3 (4.5-11.0)
[2021-10-14 07:59] LABS: ALANINE AMINOTRANSFERASE 30 U/L (12-78); ALBUMIN 3.1 G/DL (3.4-5.0); ALBUMIN/GLOBULIN RATIO 1.2 (1.1-1.5); ALKALINE PHOSPHATASE 71 IU/L (46-116); ANION GAP 11 (8-16); ASPARTATE AMINO TRANSFERASE 38 U/L (10-37); BILIRUBIN,TOTAL 0.2 MG/DL (0.1-1.0); BLOOD UREA NITROGEN 12 MG/DL (7-18); BUN/CREATININE RATIO 16.4 (5.4-32.0); CALCIUM 7.6 MG/DL (8.5-10.1); CHLORIDE 109 MMOL/L (99-107); CREATININE 0.73 MG/DL (0.60-1.10); GLUCOSE 110 MG/DL (70-104); POTASSIUM 3.8 MMOL/L (3.5-5.1); SODIUM 146 MMOL/L (135-145); TOTAL CARBON DIOXIDE 26.1 MMOL/L (24-32); TOTAL PROTEIN 5.7 G/DL (6.4-8.2); eGFR > 90 ML/MIN
[2021-10-14 08:03] LABS: ETHANOL < 0.010 GM/DL (0.0-0.010)
--- NOTE | 2021-10-14 08:27 | NUR ---
BREAKFAST TRAY TO BEDSIDE.
== END 2021-10-14 09:00 | disposition home or self-care (01) ==
LOC: ER 21:15
DX: R45.851 Suicidal ideations (principal); F20.9 Schizophrenia, unspecified; F31.9 Bipolar disorder, unspecified; F17.210 Nicotine dependence, cigarettes, uncomplicated; F12.10 Cannabis abuse, uncomplicated; F15.10 Other stimulant abuse, uncomplicated; Z59.00 Homelessness unspecified; Z56.0 Unemployment, unspecified
CPT/HCPCS: 36415; 80053; 80320; 84443; 85025; 99285

== ENCOUNTER 2021-11-07 18:43 | Emergency (ER) | payer MEDICAID ==
[~2021-11-07] VITALS: Ht 185.4 cm; Wt 70.0 kg
[2021-11-07 19:38] LABS: BASOPHILS % (AUTO) 0.5 % (0-1); EOSINOPHILS # (AUTO) 0.1 X10'3 (0-0.9); EOSINOPHILS % (AUTO) 0.7 % (0-6); HEMATOCRIT 36.6 % (42.0-52.0); HEMOGLOBIN 12.4 g/dl (14.0-17.9); LYMPHOCYTES # (AUTO) 2.1 X10'3 (1.1-4.8); LYMPHOCYTES % (AUTO) 23.4 % (21-51); MEAN CORPUSCULAR VOLUME 85.4 FL (78-98); MEAN PLATELET VOLUME 6.9 FL (7.4-10.4); MONOCYTES % (AUTO) 10.9 % (2-12); NEUTROPHILS # (AUTO) 5.9 X10'3 (1.8-7.7); NEUTROPHILS % (AUTO) 64.5 % (42-75); PLATELET COUNT 258 X10'3 (140-440); RED BLOOD COUNT 4.29 X10'6 (4.70-6.10); WHITE BLOOD COUNT 9.1 X10'3 (4.5-11.0)
[2021-11-07 19:48] LABS: ALANINE AMINOTRANSFERASE 41 U/L (12-78); ALBUMIN 3.5 G/DL (3.4-5.0); ALBUMIN/GLOBULIN RATIO 1.2 (1.1-1.5); ALKALINE PHOSPHATASE 62 IU/L (46-116); ANION GAP 12 (8-16); ASPARTATE AMINO TRANSFERASE 67 U/L (10-37); BILIRUBIN,TOTAL 0.5 MG/DL (0.1-1.0); BLOOD UREA NITROGEN 13 MG/DL (7-18); BUN/CREATININE RATIO 16.3 (5.4-32.0); CALCIUM 8.5 MG/DL (8.5-10.1); CHLORIDE 104 MMOL/L (99-107); GLUCOSE 97 MG/DL (70-104); POTASSIUM 3.6 MMOL/L (3.5-5.1); SODIUM 141 MMOL/L (135-145); TOTAL CARBON DIOXIDE 25.5 MMOL/L (24-32); TOTAL PROTEIN 6.5 G/DL (6.4-8.2); eGFR > 90 ML/MIN
[2021-11-07 20:00] LABS: ETHANOL < 0.010 GM/DL (0.0-0.010)
--- NOTE | 2021-11-07 20:39 | NUR ---
PT IN BED RESTING ON LEFT SIDE AROUSES EASILY. REMINDED PT OF NEED TO URINATE, PT VERBALIZED UNDERSTANDING. PT STATES THAT HE DOES NOT YET HAVE TO URINATE OF YET BUT HE WILL PROVIDE ONE WHEN ABLE. NO ACUTE DISTRESS, MONITORING THROUGHOUT.
[2021-11-07] MEDS ORDERED: RISP2TAB85 PO (22:10)
[2021-11-07] MEDS ORDERED: OLAN15TA35 PO (22:10)
[2021-11-07] MEDS ORDERED: TRIH2TAB3 PO (22:10)
[2021-11-07 22:18] LABS: URINE AMPHETAMINE SCREEN POSITIVE (Neg); URINE BARBITUATE SCREEN NEGATIVE (Neg); URINE BENZODIAZEPINES SCREEN NEGATIVE (Neg); URINE CANNABINOID SCREEN POSITIVE (Neg); URINE COCAINE SCREEN NEGATIVE (Neg); URINE METHADONE SCREEN NEGATIVE (Neg); URINE OPIATE SCREEN NEGATIVE (Neg); URINE PHENCYCLIDINE SCREEN NEGATIVE (Neg)
[2021-11-07] MEDS ORDERED: risperiDONE 2mg tablet PO PRN (22:30)
--- NOTE | 2021-11-07 22:49 | NUR ---
PATIENT ARRIVED ON THE UNIT IN NO OBVIOUS DISTRESS. NO PHYSICAL COMPLAINT.PATIENT STATES THAT HE IS FEELING SLEEPY. PATIENT ADMITS HAVING SUICIDAL IDEATION WITH PLAN TO WALK IN TO TRAFFIC. PATIENT STATES THAT THE VOICES ARE SPEAKING IN LOW TONE, HE IS NOT SURE WHAT THE VOICES ARE SAYING. OBSERVATION ONGOING.
--- NOTE | 2021-11-08 02:41 | NUR ---
PATIENT ASLEEP IN NO OBVIOUS DISTRESS. OBSERVATION ONGOING.
[2021-11-08 05:59] VITALS: BP 128/81
--- NOTE | 2021-11-08 06:00 | NUR ---
PATIENT RECEIVED FROM DARLEEN GLEZ. PATIENT IS RESTING IN BED QUIETLY. NO S/S OF DISCOMFORT AT THIS TIME.
[2021-11-08] MEDS ORDERED: trihexyphenidyl 2mg tablet PO SCH (08:00)
--- NOTE | 2021-11-08 08:00 | NUR ---
Patient is eating breakfast in bed. Complaint with medication regimen. Stated that he is ready to go home. Will continue to observe.
[2021-11-08 08:27] LABS: CLARITY,URINE CLEAR (Clear); COLOR,URINE YELLOW (Yellow); GLUCOSE, URINE NEGATIVE (Neg); KETONES,URINE NEGATIVE (Neg); LEUKOCYTE ESTERASE ,URINE NEGATIVE (Neg); OCCULT BLOOD,URINE NEGATIVE (Neg); PROTEIN,URINE NEGATIVE (Neg); UROBILINOGEN,URINE 0.2 E.U/dL (0.2-1.0)
[2021-11-08 08:32] LABS: UA COLLECTION TYPE CLN CATCH MIDSTREAM
[2021-11-08 08:34] LABS: NITRITES, URINE NEGATIVE (Neg)
--- NOTE | 2021-11-08 10:50 | NUR ---
BREAKING THE PRIMARY NURSE AT THIS TIME ,[facility] WAS TRYING TO TALK TO PT ,PT GOT AGITATED ,KEEP STATING "I AM NOT SUCIDAL ".SECURITY OFFICERS CALLED ,PT IS VERY LOUD AND ARGUGING WITH THE FRUIT CULLER.
[2021-11-08] MEDS ORDERED: haloperidol lactate 5mg/ml inj IM ONE (10:55)
[2021-11-08] MEDS ORDERED: diphenhydrAMINE 50 mg/ml inj IM ONE (10:55)
[2021-11-08] MEDS ORDERED: LORazepam 2 mg/ml vial IM ONE (10:55)
--- NOTE | 2021-11-08 11:52 | NUR ---
Patient is d/c to [facility]. Escorted by security.
[2021-11-08] MEDS ORDERED: OLANZAPINE 5 MG TABLET PO SCH (21:00)
== END 2021-11-08 11:50 | disposition home or self-care (01) ==
LOC: ER 18:43
DX: R45.851 Suicidal ideations (principal); Z20.822 Contact with and (suspected) exposure to COVID-19; F31.9 Bipolar disorder, unspecified; F20.9 Schizophrenia, unspecified; F12.90 Cannabis use, unspecified, uncomplicated; F15.90 Other stimulant use, unspecified, uncomplicated; Z72.89 Other problems related to lifestyle; Z56.0 Unemployment, unspecified; Z59.00 Homelessness unspecified; Z79.899 Other long term (current) drug therapy
CPT/HCPCS: 36415; 80053; 80305; 80320; 81003; 84443; 85025; 87635; 99285; C9803

== ENCOUNTER 2021-11-09 22:54 | Emergency (ER) | payer MEDICAID ==
[~2021-11-09] VITALS: Ht 182.9 cm; Wt 63.6 kg
[~2021-11-09 22:54] MED LIST changes: +OLAN15TA35 PO; +RISP2TAB85 PO; +TRIH2TAB3 PO
[2021-11-10 00:04] LABS: URINE AMPHETAMINE SCREEN NEGATIVE (Neg); URINE BARBITUATE SCREEN NEGATIVE (Neg); URINE BENZODIAZEPINES SCREEN NEGATIVE (Neg); URINE CANNABINOID SCREEN POSITIVE (Neg); URINE COCAINE SCREEN NEGATIVE (Neg); URINE METHADONE SCREEN NEGATIVE (Neg); URINE OPIATE SCREEN NEGATIVE (Neg); URINE PHENCYCLIDINE SCREEN NEGATIVE (Neg)
[2021-11-10 00:36] LABS: CLARITY,URINE CLEAR (Clear); COLOR,URINE YELLOW (Yellow); GLUCOSE, URINE NEGATIVE (Neg); KETONES,URINE NEGATIVE (Neg); LEUKOCYTE ESTERASE ,URINE NEGATIVE (Neg); NITRITES, URINE NEGATIVE (Neg); OCCULT BLOOD,URINE NEGATIVE (Neg); PH,URINE 7.5 (4.8-8.0); PROTEIN,URINE NEGATIVE (Neg); UROBILINOGEN,URINE 0.2 E.U/dL (0.2-1.0)
[2021-11-10 00:45] LABS: UA COLLECTION TYPE URINAL
[2021-11-10 01:43] LABS: BASOPHILS # (AUTO) 0.1 X10'3 (0-0.2); BASOPHILS % (AUTO) 0.6 % (0-1); EOSINOPHILS # (AUTO) 0.1 X10'3 (0-0.9); EOSINOPHILS % (AUTO) 1.1 % (0-6); HEMATOCRIT 39.5 % (42.0-52.0); HEMOGLOBIN 13.4 g/dl (14.0-17.9); LYMPHOCYTES # (AUTO) 2.2 X10'3 (1.1-4.8); LYMPHOCYTES % (AUTO) 22.9 % (21-51); MEAN CORPUSCULAR HEMOGLOBIN 29.4 PG (27.0-31.0); MEAN CORPUSCULAR HGB CONC 33.9 g/dL (33.0-36.5); MEAN CORPUSCULAR VOLUME 86.8 FL (78-98); MEAN PLATELET VOLUME 6.8 FL (7.4-10.4); MONOCYTES % (AUTO) 10.9 % (2-12); NEUTROPHILS # (AUTO) 6.2 X10'3 (1.8-7.7); NEUTROPHILS % (AUTO) 64.5 % (42-75); PLATELET COUNT 253 X10'3 (140-440); RED BLOOD COUNT 4.55 X10'6 (4.70-6.10); RED CELL DISTRIBUTION WIDTH 15.3 % (11.5-14.5); WHITE BLOOD COUNT 9.6 X10'3 (4.5-11.0)
[2021-11-10 02:27] LABS: ALANINE AMINOTRANSFERASE 40 U/L (12-78); ALBUMIN 3.3 G/DL (3.4-5.0); ALKALINE PHOSPHATASE 81 IU/L (46-116); ANION GAP 8 (8-16); ASPARTATE AMINO TRANSFERASE 41 U/L (10-37); BILIRUBIN,TOTAL 0.2 MG/DL (0.1-1.0); BLOOD UREA NITROGEN 10 MG/DL (7-18); BUN/CREATININE RATIO 14.5 (5.4-32.0); CALCIUM 8.4 MG/DL (8.5-10.1); CHLORIDE 105 MMOL/L (99-107); CREATININE 0.69 MG/DL (0.60-1.10); GLUCOSE 118 MG/DL (70-104); POTASSIUM 3.9 MMOL/L (3.5-5.1); SODIUM 142 MMOL/L (135-145); TOTAL CARBON DIOXIDE 28.6 MMOL/L (24-32); TOTAL PROTEIN 6.6 G/DL (6.4-8.2); eGFR > 90 ML/MIN
[2021-11-10 02:42] LABS: ETHANOL < 0.010 GM/DL (0.0-0.010)
--- NOTE | 2021-11-10 09:22 | NUR ---
PT GETTING UPSET WAITING FOR BREAKFAST EXPLAINED TO PT THAT I HAVE NO CONTROL OVER WHEN BREAKFAST COMES AND THAT THE PT FRIDGE IS EMPTY, MADE SURE PT HAS A DIET ORDER PLACED AND THAT A MEAL REQUEST FORM WAS FAXED. PT REFUSING TO STAY IN ROOM DEMANDING TO SEE A DR EXPLAINED PT THAT THERE IS NO MEDICAL DR ASSIGNED TO HIM AND THAT HE IS WAITING TO BE EVALUATED BY [facility]. PT DIFFICULT TO REDIRECT SECURITY CALLED PT PLACED BACK IN BED AT THIS TIME.
[2021-11-10 09:51] VITALS: BP 132/87
--- NOTE | 2021-11-10 09:59 | NUR ---
PT BELONGINGS GIVEN BACK PT DRESSED AND ESCORTED OFF OF PROPERTY
== END 2021-11-10 10:01 | disposition home or self-care (01) ==
LOC: ER 22:55
DX: R45.851 Suicidal ideations (principal); Z20.822 Contact with and (suspected) exposure to COVID-19; F31.9 Bipolar disorder, unspecified; F20.9 Schizophrenia, unspecified; F12.90 Cannabis use, unspecified, uncomplicated; F15.90 Other stimulant use, unspecified, uncomplicated; Z72.89 Other problems related to lifestyle; Z56.0 Unemployment, unspecified; Z59.00 Homelessness unspecified; Z79.899 Other long term (current) drug therapy
CPT/HCPCS: 36415; 80053; 80305; 80320; 81003; 84443; 85025; 87635; 99285; C9803

== ENCOUNTER 2021-11-26 10:12 | Emergency (ER) | payer MEDICAID ==
[~2021-11-26] VITALS: Ht 182.9 cm; Wt 65.9 kg
[2021-11-26 11:15] LABS: URINE AMPHETAMINE SCREEN NEGATIVE (Neg); URINE BARBITUATE SCREEN NEGATIVE (Neg); URINE BENZODIAZEPINES SCREEN NEGATIVE (Neg); URINE CANNABINOID SCREEN POSITIVE (Neg); URINE COCAINE SCREEN NEGATIVE (Neg); URINE METHADONE SCREEN NEGATIVE (Neg); URINE OPIATE SCREEN NEGATIVE (Neg); URINE PHENCYCLIDINE SCREEN NEGATIVE (Neg)
[2021-11-26 11:19] LABS: BASOPHILS # (AUTO) 0.1 X10'3 (0-0.2); BASOPHILS % (AUTO) 0.6 % (0-1); EOSINOPHILS # (AUTO) 0.1 X10'3 (0-0.9); EOSINOPHILS % (AUTO) 0.9 % (0-6); HEMATOCRIT 42.9 % (42.0-52.0); HEMOGLOBIN 14.1 g/dl (14.0-17.9); LYMPHOCYTES # (AUTO) 1.8 X10'3 (1.1-4.8); LYMPHOCYTES % (AUTO) 20.1 % (21-51); MEAN CORPUSCULAR HEMOGLOBIN 28.3 PG (27.0-31.0); MEAN CORPUSCULAR HGB CONC 32.9 g/dL (33.0-36.5); MEAN PLATELET VOLUME 6.8 FL (7.4-10.4); MONOCYTES # (AUTO) 0.9 X10'3 (0-0.9); NEUTROPHILS # (AUTO) 5.9 X10'3 (1.8-7.7); NEUTROPHILS % (AUTO) 68.4 % (42-75); PLATELET COUNT 235 X10'3 (140-440); RED BLOOD COUNT 4.99 X10'6 (4.70-6.10); RED CELL DISTRIBUTION WIDTH 15.4 % (11.5-14.5); WHITE BLOOD COUNT 8.7 X10'3 (4.5-11.0)
[2021-11-26 11:31] LABS: ACETAMINOPHEN < 2.0 UG/ML (10-30); ALANINE AMINOTRANSFERASE 30 U/L (12-78); ALBUMIN 3.3 G/DL (3.4-5.0); ALKALINE PHOSPHATASE 65 IU/L (46-116); ANION GAP 5 (8-16); ASPARTATE AMINO TRANSFERASE 27 U/L (10-37); BLOOD UREA NITROGEN 10 MG/DL (7-18); BUN/CREATININE RATIO 13.5 (5.4-32.0); CALCIUM 8.1 MG/DL (8.5-10.1); CHLORIDE 104 MMOL/L (99-107); CREATININE 0.74 MG/DL (0.60-1.10); GLUCOSE 99 MG/DL (70-104); POTASSIUM 4.2 MMOL/L (3.5-5.1); SODIUM 139 MMOL/L (135-145); TOTAL CARBON DIOXIDE 29.7 MMOL/L (24-32); TOTAL PROTEIN 6.7 G/DL (6.4-8.2); eGFR > 90 ML/MIN
[2021-11-26 11:32] LABS: BILIRUBIN,TOTAL 0.2 MG/DL (0.1-1.0)
[2021-11-26 11:36] LABS: ETHANOL < 0.010 GM/DL (0.0-0.010)
--- NOTE | 2021-11-26 12:04 | NUR ---
SANDWICH GIVEN TO PATIENT AT THIS TIME ALONG WITH WATER AND JELLO. PATIENT CALM AND COOPERATIVE, WITHIN SIGHT OF STAFF AT ALL TIMES.
--- NOTE | 2021-11-26 13:05 | NUR ---
PACKET FAXED TO [facility]
[2021-11-26 15:12] LABS: CLARITY,URINE CLEAR (Clear); GLUCOSE, URINE NEGATIVE (Neg); KETONES,URINE NEGATIVE (Neg); LEUKOCYTE ESTERASE ,URINE NEGATIVE (Neg); NITRITES, URINE NEGATIVE (Neg); OCCULT BLOOD,URINE NEGATIVE (Neg); PH,URINE 7.5 (4.8-8.0); PROTEIN,URINE NEGATIVE (Neg); UROBILINOGEN,URINE 0.2 E.U/dL (0.2-1.0)
[2021-11-26 15:16] LABS: COLOR,URINE STRAW (Yellow); UA COLLECTION TYPE NON-SPECIFIED
--- NOTE | 2021-11-26 15:33 | NUR ---
Pt arrived to bed #26 from main ED. Pt was brought over on [facility] r/t "feeling tired." Pt self transferred to bed without incident.
--- NOTE | 2021-11-26 15:47 | NUR ---
One on one with patient. Pt presents slightly agitated, but answers questions. Pt requested a snack, which was given. Pt reports suicidal thoughts r/t "you know my brother was just murdered." Pt also endorses auditory hallucinations. Pt states "can I just sleep now."
--- NOTE | 2021-11-26 17:10 | NUR ---
Pt resting comfortably, respirations even and unlabored.
--- NOTE | 2021-11-26 19:43 | NUR ---
THe patient was made aware that he would be transferred to [facility] this evening. He stated that he was fine with that plan.
--- NOTE | 2021-11-26 19:45 | NUR ---
The patient has decided that now he does not want to go to [facility] because he doesn't want.
[2021-11-26] MEDS ORDERED: acetaminophen 325mg tablet PO ONE (19:50)
[2021-11-26] MEDS ORDERED: nicotine 14mg patch - 24hr TD ONE (19:50)
--- NOTE | 2021-11-26 19:57 | NUR ---
Security is at the bedside and patient has calmed down. Pending transfer
[2021-11-26 20:05] VITALS: BP 124/84
== END 2021-11-26 20:11 ==
LOC: ER 10:13
DX: R45.851 Suicidal ideations (principal); Z20.822 Contact with and (suspected) exposure to COVID-19; F31.9 Bipolar disorder, unspecified; F20.9 Schizophrenia, unspecified; F12.90 Cannabis use, unspecified, uncomplicated; F15.90 Other stimulant use, unspecified, uncomplicated; Z72.89 Other problems related to lifestyle; Z56.0 Unemployment, unspecified; Z59.00 Homelessness unspecified; Z79.899 Other long term (current) drug therapy
CPT/HCPCS: 36415; 80053; 80305; 80320; 80329; 81003; 84443; 85025; 87635; 99285; C9803

== ENCOUNTER 2022-02-03 10:51 | Inpatient (IN) | payer MEDICAID ==
[~2022-02-03] VITALS: Ht 185.4 cm; Wt 61.5 kg
[~2022-02-03 10:51] MED LIST changes: -NO HOME MEDS
[2022-02-03 11:26] LABS: BASOPHILS % (AUTO) 0.3 % (0-1); EOSINOPHILS # (AUTO) 0.1 X10'3 (0-0.9); EOSINOPHILS % (AUTO) 1.1 % (0-6); HEMATOCRIT 35.4 % (42.0-52.0); HEMOGLOBIN 11.8 g/dl (14.0-17.9); LYMPHOCYTES % (AUTO) 27.1 % (21-51); MEAN CORPUSCULAR HEMOGLOBIN 28.7 PG (27.0-31.0); MEAN CORPUSCULAR HGB CONC 33.4 g/dL (33.0-36.5); MEAN PLATELET VOLUME 6.9 FL (7.4-10.4); MONOCYTES # (AUTO) 0.7 X10'3 (0-0.9); MONOCYTES % (AUTO) 9.5 % (2-12); NEUTROPHILS # (AUTO) 4.5 X10'3 (1.8-7.7); PLATELET COUNT 231 X10'3 (140-440); RED BLOOD COUNT 4.11 X10'6 (4.70-6.10); RED CELL DISTRIBUTION WIDTH 15.5 % (11.5-14.5); WHITE BLOOD COUNT 7.3 X10'3 (4.5-11.0)
--- NOTE | 2022-02-03 11:57 | NUR ---
pt resting with eyes closed.
[2022-02-03 12:13] LABS: ALANINE AMINOTRANSFERASE 35 U/L (12-78); ALBUMIN 3.1 G/DL (3.4-5.0); ALKALINE PHOSPHATASE 82 IU/L (46-116); ANION GAP 7 (8-16); ASPARTATE AMINO TRANSFERASE 48 U/L (10-37); BILIRUBIN,TOTAL 0.4 MG/DL (0.1-1.0); BLOOD UREA NITROGEN 10 MG/DL (7-18); BUN/CREATININE RATIO 14.7 (5.4-32.0); CALCIUM 7.9 MG/DL (8.5-10.1); CHLORIDE 105 MMOL/L (99-107); CREATININE 0.68 MG/DL (0.60-1.10); ETHANOL < 0.010 GM/DL (0.0-0.010); GLUCOSE 127 MG/DL (70-104); SODIUM 140 MMOL/L (135-145); TOTAL CARBON DIOXIDE 27.6 MMOL/L (24-32); TOTAL PROTEIN 6.2 G/DL (6.4-8.2); eGFR > 90 ML/MIN
[2022-02-03 12:15] LABS: POTASSIUM 3.8 MMOL/L (3.5-5.1)
--- NOTE | 2022-02-03 12:26 | NUR ---
pt yelling out if staff not responding fast enough
[2022-02-03 12:41] LABS: COLOR,URINE YELLOW (Yellow); GLUCOSE, URINE NEGATIVE (Neg); KETONES,URINE NEGATIVE (Neg); LEUKOCYTE ESTERASE ,URINE NEGATIVE (Neg); NITRITES, URINE NEGATIVE (Neg); OCCULT BLOOD,URINE NEGATIVE (Neg); PROTEIN,URINE NEGATIVE (Neg); UA COLLECTION TYPE URINAL; UROBILINOGEN,URINE 0.2 E.U/dL (0.2-1.0)
[2022-02-03 12:42] LABS: CLARITY,URINE CLEAR (Clear)
[2022-02-03 13:13] LABS: URINE AMPHETAMINE SCREEN NEGATIVE (Neg); URINE BARBITUATE SCREEN NEGATIVE (Neg); URINE BENZODIAZEPINES SCREEN NEGATIVE (Neg); URINE CANNABINOID SCREEN POSITIVE (Neg); URINE COCAINE SCREEN NEGATIVE (Neg); URINE METHADONE SCREEN NEGATIVE (Neg); URINE OPIATE SCREEN NEGATIVE (Neg); URINE PHENCYCLIDINE SCREEN NEGATIVE (Neg)
--- NOTE | 2022-02-03 14:56 | NUR ---
PT RESTING IN BED WITH EYES CLOSED.
--- NOTE | 2022-02-03 18:02 | NUR ---
pt resting with eyes closed in bed
--- NOTE | 2022-02-03 19:00 | NUR ---
PT SLEEPING. EQUAL RISE AND FALL OF CHEST.
--- NOTE | 2022-02-03 20:00 | NUR ---
PT EATING DINNER TRAY.
--- NOTE | 2022-02-03 21:00 | NUR ---
PT SLEEPING. EQUAL RISE AND FALL OF CHEST.
--- NOTE | 2022-02-03 22:00 | NUR ---
PT REQUESTED SOMETHING TO EAT. PROVIDED A SANDWICH AND APPLE JUICE.
--- NOTE | 2022-02-03 23:00 | NUR ---
PT SLEEPING. EQUAL RISE AND FALL OF CHEST.
--- NOTE | 2022-02-04 | NUR ---
PT SLEEPING. EQUAL RISE AND FALL OF CHEST.
--- NOTE | 2022-02-04 01:00 | NUR ---
PT SLEEPING EQUAL RISE AND FALL OF CHEST.
[2022-02-04] MEDS ORDERED: haloperidol lactate 5mg/ml inj IM ONE (01:35)
[2022-02-04] MEDS ORDERED: diphenhydrAMINE 50 mg/ml inj IM ONE (01:35)
[2022-02-04] MEDS ORDERED: LORazepam 2 mg/ml vial IM ONE (01:35)
--- NOTE | 2022-02-04 02:00 | NUR ---
PT REQUESTED A SNACK. I OFFERED TO GIVE A SNACK BUT KINDLY REQUESTED HIM TO CHANGE INTO GREEN SCRUBS. AT THIS POINT, PT BEGAN FLAILING HIS ARMS, SHOUTING THAT HE "WAS NEVER OFFERED A BLANKET OR WATER" DESPITE HAVING HIS WATER CONTAINER WITH WATER NEXT TO HIM. ATTEMPTED TO DE-ESCALATE WITH NO SUCCESS. SECURITY WAS CALLED PT COULD NOT CONTROL HIS SHOUTING. PT STARTED BANGING THE LAURENT, STANDING UP ON HIS BED, AND YELLING INSULTS TO ALL STAFF WALKING BY HIS ROOM. DR CARDONA ENTERED ROOM SEEKING TO DE-ESCALATE BUT PT BECAME LOUDER AND MORE VIOLENT. DR CARDONA PUT IN ORDERS FOR MEDICATION. PT MEDICATED IM WITH SEVERAL SECURITY OFFICERS IN ROOM.
--- NOTE | 2022-02-04 03:00 | NUR ---
PT SLEEPING. EQUAL RISE AND FALL OF CHEST. EKG COMPLETED. PT PLACED ON VENDOR QUALITY SUPERVISOR.
--- NOTE | 2022-02-04 04:00 | NUR ---
PT SLEEPING. EQUAL RISE AND FALL OF CHEST. SUPPORT SERVICES REP IS STILL ON
--- NOTE | 2022-02-04 05:02 | NUR ---
PT SLEEPING. EQUAL RISE AND FALL OF CHEST. PT STILL ON MEDICAL LABORATORY TECHNOLOGIST.
--- NOTE | 2022-02-04 05:44 | NUR ---
record sent to [facility]
--- NOTE | 2022-02-04 11:22 | NUR ---
Spoke with Paras Richardson from infectious disease dept., who stated that as long as the patient was asymptomatic; patient can be cleared of COVID isolation per Dr. Yi. Patient is asymptomatic currently and Binax result was negative this morning.
--- NOTE | 2022-02-04 11:27 | NUR ---
PATIENT TRANSPORTED FROM MAIN ER TO ER OVERFLOW VIA GURNEY ACCOMPANIED BY TECH. PATIENT ENDORSING THAT HE "CANNOT WALK BECAUSE HIS FEET HURT". PATIENT PROVIDED WITH GREEN UNIT SCRUBS. HE REFUSED TO PUT A SHIRT ON DESPITE ENCOURAGEMENT. PATIENT ENCOURAGED BY BOX TOE CUTTER TO WEAR PROVIDED SHIRT THERE ARE OTHER PATIENTS ON THE UNIT. HE IS NOTED TO BE IRRITABLE YET COOPERATIVE WITH CARE. PATIENT REPORTS SI TO THIS OWNER/OPERATOR, HOWEVER, DOES NOT HAVE A PLAN. PATIENT ENDORSED THAT HE CAN "COME UP WITH A PLAN IF HE NEEDS TO!" WHILE TALKING TO THIS OWNER/OPERATOR. HE DENIES HI, AH OR VH. DOES NOT APPEAR TO BE RESPONDING TO IS. PATIENT PROVIDED WITH SNACKS PER HIS REQUEST. HE IS NOTED SITTING IN HIS ROOM AT THIS TIME EATING WITH NO S/S OF DISTRESS. WILL CONTINUE TO MONITOR.
--- NOTE | 2022-02-04 13:30 | NUR ---
PATIENT AWOKE TO EAT LUNCH THAT WAS PROVIDED TO HIM IN HIS ROOM. HE PRESENTS CALM WITH NO S/S OF DISTRESS.
--- NOTE | 2022-02-04 15:00 | NUR ---
PATIENT IS OBSERVED SLEEPING ON HIS LEFT SIDE IN HIS ROOM AT THIS TIME. NOTED RISE AND FALL OF CHEST. RESPIRATIONS EVEN, UNLABORED. WILL CONTINUE TO MONITOR.
--- NOTE | 2022-02-04 16:10 | NUR ---
Nadeem keane in [facility] - 02/04/22 at 1625 by NANDO PATIENT'S MOTHER IS VISITING AT BEDSIDE AT THIS TIME
[2022-02-04] MEDS ORDERED: OLAN10TA73 PO (16:57)
--- NOTE | 2022-02-04 17:00 | NUR ---
PATIENT IS OBSERVED SLEEPING IN HIS ROOM WITH NO S/S OF DISTRESS. RESPIRATIONS EVEN, UNLABORED. WILL CONTINUE TO MONITOR.
[2022-02-04] MEDS ORDERED: olanzapine 10mg tablet PO ONE (17:35)
[2022-02-04] MEDS ORDERED: olanzapine 10mg tablet PO SCH (17:35)
--- NOTE | 2022-02-04 19:01 | NUR ---
The patient is resting on his bed. He is drowsy but awakened for a brief assessment. He reports that he is still feeling suicidal and he is still hearing voices but did not elaborate.
--- NOTE | 2022-02-04 20:24 | NUR ---
The patient appears to be sleeping
[2022-02-04] MEDS ORDERED: risperiDONE 2mg tablet PO PRN (21:00)
[2022-02-04] MEDS: olanzapine 10mg tablet PO SCH (21:36)
[2022-02-04] MEDS: trihexyphenidyl 2mg tablet PO SCH (21:36)
--- NOTE | 2022-02-04 22:06 | NUR ---
The patient appears to be sleeping
--- NOTE | 2022-02-04 23:28 | NUR ---
The patient appears to be sleeping
--- NOTE | 2022-02-05 00:56 | NUR ---
The patient appears to be sleeping
--- NOTE | 2022-02-05 02:17 | NUR ---
The patient appears to be sleeping
--- NOTE | 2022-02-05 03:58 | NUR ---
The patient appears to be sleeping
--- NOTE | 2022-02-05 04:57 | NUR ---
The patient appears to be sleeping
--- NOTE | 2022-02-05 07:00 | NUR ---
Pt sleeping. Appears comfortable. RR even and unlabored.
--- NOTE | 2022-02-05 08:00 | NUR ---
Pt ate 100% of his breakfast. Medications administered. Pt complaint with taking his pills by opening his mouth without this nurse requesting for him to do so. Pt then quickly laid down and shut his eyes.
[2022-02-05] MEDS: olanzapine 10mg tablet PO SCH ×2 (08:38→20:21)
[2022-02-05] MEDS: trihexyphenidyl 2mg tablet PO SCH ×2 (08:38→20:21)
--- NOTE | 2022-02-05 09:41 | NUR ---
Pt appears to be sleeping. RR even and unlabored.
[2022-02-05 10:30] VITALS: BP 105/71
--- NOTE | 2022-02-05 10:30 | NUR ---
ADMIT NOTE: Per 5150: "You report that the voices are telling you to kill yourself and that you're going to hurt someone". Pt. admitted from ER overflow to [facility] with escort from security. Pt. cooperative with vitals assessment and skin check. Pt. showered. When pt. got to his room pt. became agitated, stating, "I need to get out of her... I want to talk to mental health!" RN received order for Ativan 2mg and Zyprexa 10mg po and pt. received with good effect. Pt. given sandwich and orange juice. During 1:1 interview, pt. gives one word responses to RN's questions. Pt. reports SI without a plan. Denies HI. Endorses AV hallucinations but does not describe what he hears and sees. Pt. reports previous suicide attempt in 2002 by jumping off a bridge. Pt. awoke for lunch and when told that his lunch would be brought from the ER pt. became agitated and stated, "That's it, I'm out of here, pt. went back to his room". When pt. given his tray pt. became calm, stating, "Thank you, I'm sorry about that." Pt. slept most of the afternoon. Addendum: 02/05/22 at 1751 by Jose Maria Anthony RN RN attempted to get consent forms signed, pt. states, "I don't care!" Pt. refused to sign some forms other forms pt. signed haphazardly, not wanting RN to explain form.
[2022-02-05] MEDS ORDERED: OLANZapine 5mg rapidly disint. tablet PO ONE (10:50)
[2022-02-05] MEDS ORDERED: mag hydrox/Alum hydrox/simeth 30ml oral suspension PO PRN (10:50)
[2022-02-05] MEDS ORDERED: magnesium hydroxide 30ml (MOM) UD suspension PO PRN (10:50)
[2022-02-05] MEDS ORDERED: LORazepam 1 MG tablet PO ONE (10:50)
[2022-02-05] MEDS ORDERED: acetaminophen 325mg tablet PO PRN (10:50)
[2022-02-05] MEDS ORDERED: loperamide 2mg capsule PO PRN (10:50)
[2022-02-05] MEDS ORDERED: NICOTINE POLACRILEX 2 MG LOZENGE BC PRN (10:50)
--- NOTE | 2022-02-05 14:16 | NUR ---
Noted pt BMI 17.9 per EMR. Pt admit on 5150 for SI and schizophrenia per EMR. Pt reports 14-23lb wt loss past 3 months though no decrease in appetite per RN Malnutrition Screen. Pt current scaled wt 61.5kg this admit w/ wt hx 59-67kg prior multiple ER visits past year w/ ht hx 72-73in as well per EMR. Pt has no edema/wounds and appears WD/WN per ER note. If pt ht 72in BMI would be 18.4 though likely maintains chronic underweight status per prior visits in EMR. Noted pt hx heavy etoh per EMR; RD d/w RN regarding routine thiamine, folic acid, and MVI supplementation if MD agreeable. Will monitor for nutrition intervention needs this admit. Addendum: 02/05/22 at [address] Amended: Links added.
[2022-02-05 19:47] VITALS: BP 111/71
--- NOTE | 2022-02-06 04:33 | NUR ---
Nursing Progress Note: Roge Problem: Pt. admitted from ER overflow to [facility] with escort from security. Pt. cooperative with vitals assessment and skin check. Pt. showered. When pt. got to his room pt. became agitated, stating, "I need to get out of her... I want to talk to mental health!" RN received order for Ativan 2mg and Zyprexa 10mg po and pt. received with good effect. Pt. given sandwich and orange juice. During 1:1 interview, pt. gives one word responses to RN's questions. Pt. reports SI without a plan. Denies HI. Endorses AV hallucinations but does not describe what he hears and sees. Interventions: Attempted to establish rapport, maintained a safe and supportive environment, provided clear and simple instructions, and provided active listening and positive encouragement, and maintained Q 15m min safety checks. Response: Patient was observed sleeping at change of shift. Patient continued to isolate and sleep until nurse came in to preform vitals. Patient asked when he could see the MH doctor. Patient stated he wanted to know when he could go home. Patient returned to sleep after 1:1 assessment. Patient refused to leave rom to participate in snack. Patient took all night medications without issue and went back to bed. Patient got up twice in the night asking for the time and food. Plan: Patient requires interruption of current crisis, medication adjustments, and a safe and supportive environment.
[2022-02-06 07:08] VITALS: BP 113/78
[2022-02-06] MEDS: multivitamins, therapeutics tablet PO SCH (08:38)
[2022-02-06] MEDS: trihexyphenidyl 2mg tablet PO SCH ×2 (08:38→20:20)
[2022-02-06] MEDS: thiamine 100mg tablet PO SCH (08:38)
[2022-02-06] MEDS: olanzapine 10mg tablet PO SCH ×2 (08:38→20:20)
[2022-02-06] MEDS: folic acid 1mg tablet PO SCH (08:38)
[2022-02-06] MEDS: acetaminophen 325mg tablet PO PRN (08:39)
--- NOTE | 2022-02-06 08:39 | NUR ---
PRNs Administered: PRN Tylenol 650mg Interventions Offered: Pt. reported chronic pain in bilateral feet, he stated, "I walked here all the way from [place]." This mortgage loan underwriter was provide a quiet environment with decreased stimulation and PRN Tylenol was administered. Will continue to monitor. Response to Medication: Pt. thanked this mortgage loan underwriter and returned to sleep.
[2022-02-06] MEDS: nicotine 21mg patch - 24 hr TD SCH (08:40)
[2022-02-06 09:31] LABS: HEMOGLOBIN A1C 5.7 % (4.5-6.2)
[2022-02-06 09:33] LABS: CHOL/HDL RATIO 3.2 (0.00-4.99); CHOLESTEROL 136 MG/DL (0-200); HDL CHOLESTEROL 43 MG/DL (35-60); LDL CHOLESTEROL 79 MG/DL (50-100); TRIGLYCERIDES 76 MG/DL (20-135)
[2022-02-06] MEDS ORDERED: LORazepam 1 MG tablet PO PRN (11:55)
[2022-02-06] MEDS ORDERED: traZODone 50mg tablet PO PRN (11:55)
--- NOTE | 2022-02-06 17:02 | NUR ---
Nursing Progress Note: Problem : Pt. admitted from ER overflow to [facility] with escort from security. When pt. got to his room pt. became agitated, stating, "I need to get out of her... I want to talk to mental health!" RN received order for Ativan 2mg and Zyprexa 10mg po and pt. received with good effect. During 1:1 interview, pt. gives one word responses to RN's questions. Pt. reports SI without a plan. Denies HI. Endorses AV hallucinations but does not describe what he hears and sees. Pt. presents with anxiety and perseverates on discharge. Interventions: Introduced self and established rapport, maintained a safe and supportive environment, ensured contract for safety, provided clear and simple instructions, provided active listening and postive encouragement, and maintained Q 15min safety checks. Response : Received pt. sleeping in bed at the beginning of the shift. He was awoken for breakfast, and afterwards returned back to bed. This hand sign writer awoke pt. for his AM medications and 1:1 was completed at bedside. Pt. presents as cooperative, fatigued , restless, impulsive, irritable, guarded, and withdrawn. He responds to direct questions only with short answers and repeatedly states, "I need to get out of here! Can I talk to the doctor yet?!" Pt. was provided active listening and positive encouragement, and was able to be redirected. Pt. denies any current S/I, and states, "It was just for a few days." He goes on to report he recently returned from [place] where there were limited resources available to him. Pt. denies any A/V/MUÑOZ and no delusional statements were made. Pt. isolates throughout the day mostly napping. He continues to perseverate on discharge. Plan : Per Dr. Caldwell, pt. continues to require a safe and supportive environment along with medication adjustments.
[2022-02-06 20:27] VITALS: BP 91/57
--- NOTE | 2022-02-07 04:49 | NUR ---
Nursing Progress Note: Problem : Pt. admitted from ER overflow to [facility] with escort from security. When pt. got to his room pt. became agitated, stating, "I need to get out of her... I want to talk to mental health!" RN received order for Ativan 2mg and Zyprexa 10mg po and pt. received with good effect. During 1:1 interview, pt. gives one word responses to RN's questions. Pt. reports SI without a plan. Denies HI. Endorses AV hallucinations but does not describe what he hears and sees. Pt. presents with anxiety and perseverates on discharge. Interventions: Introduced self and established rapport, maintained a safe and supportive environment, ensured contract for safety, provided clear and simple instructions, provided active listening and positive encouragement, and maintained Q 15min safety checks. Response : Patient was found sleeping in bed at change of shift. Patient continued to sleep until nurse came in to give night medications. Patient was polite and cooperative. Patient took medications without issue and returned to bed. Patient got up twice later on in the shift. Both times patient paced around quietly before returning back to bed. Plan : Per Dr. Caldwell, pt. continues to require a safe and supportive environment along with medication adjustments.
--- NOTE | 2022-02-07 07:45 | NUR ---
PRNs Administered: PRN Tylenol 650mg Interventions Offered: Pt. again reported chronic bilateral foot pain. This short story writer again provided a quiet environment with decreased stimulation and PRN Tylenol was administered. Will continue to monitor. Response to Medication: Pt. thanked this short story writer and appears to be resting comfortably.
[2022-02-07] MEDS: olanzapine 10mg tablet PO SCH ×2 (07:47→21:33)
[2022-02-07] MEDS: folic acid 1mg tablet PO SCH (07:47)
[2022-02-07] MEDS: trihexyphenidyl 2mg tablet PO SCH ×2 (07:47→21:33)
[2022-02-07] MEDS: thiamine 100mg tablet PO SCH (07:47)
[2022-02-07] MEDS: acetaminophen 325mg tablet PO PRN (07:48)
[2022-02-07] MEDS: multivitamins, therapeutics tablet PO SCH (07:48)
[2022-02-07] MEDS: nicotine 21mg patch - 24 hr TD SCH (07:49)
[2022-02-07 08:00] VITALS: BP 90/59
--- NOTE | 2022-02-07 14:01 | NUR ---
Nursing Progress Note: Problem : Pt. admitted from ER overflow to [facility] with escort from security. When pt. got to his room pt. became agitated, stating, "I need to get out of her... I want to talk to mental health!" RN received order for Ativan 2mg and Zyprexa 10mg po and pt. received with good effect. During 1:1 interview, pt. gives one word responses to RN's questions. Pt. reports SI without a plan. Denies HI. Endorses AV hallucinations but does not describe what he hears and sees. Pt. continues to deny all MH s/s and perseverates on discharge. Interventions: Maintained a safe and supportive environment, ensured contract for safety, provided clear and simple instructions, provided active listening and positive encouragement, and maintained Q 15min safety checks. Response : Received pt. sleeping in bed at the beginning of the shift, he awoke and approached the nursing station to question staff regarding discharge. Pt. was provided education that his mental health hold is up tomorrow. He again became slightly irritable and used some profanities, stating, "If I leave tomorrow nothing will be open!" Pt. then apologized and returned to his room. 1:1 was completed at bedside and pt. continues to deny any S/I, H/I, or A/V/MUÑOZ. No delusional statements were made and pt. does not appear to be responding to internal stimuli. Pt. showered this shift. Pt. again isolates throughout the day napping, he continues to perseverate on discharge. No agitated outbursts were exhibited. Plan : Per Dr. Caldwell, pt. continues to require a safe and supportive environment while monitoring for readiness to discharge.
[2022-02-07 20:41] VITALS: BP 110/72
--- NOTE | 2022-02-08 04:36 | NUR ---
Nursing Progress Note: Problem : Pt. admitted from ER overflow to [facility] with SI and AH Interventions: Introduced self and established rapport, maintained a safe and supportive environment, ensured contract for safety, provided clear and simple instructions, provided active listening and positive encouragement, and maintained Q 15min safety checks. Response : Pt isolates to his room the entirety of the shift, mainly sleeping. He appears fatigued but does wake up for 1:1 assessment and is cooperative. Pt makes good eye contact and is medication compliant. Pt denies all mental health symptoms at this time and is not observed responding to internal stimuli. Pt is not talkative, but is very polite yes cristopher, no cristopher. After assessment, meds, and snack he goes right back to sleep Plan : Per Dr. Caldwell, pt. continues to require a safe and supportive environment along with medication adjustments.
[2022-02-08] MEDS: folic acid 1mg tablet PO SCH (07:09)
[2022-02-08] MEDS: olanzapine 10mg tablet PO SCH (07:09)
[2022-02-08] MEDS: trihexyphenidyl 2mg tablet PO SCH (07:09)
[2022-02-08] MEDS: thiamine 100mg tablet PO SCH (07:09)
[2022-02-08] MEDS: multivitamins, therapeutics tablet PO SCH (07:09)
[2022-02-08] MEDS: nicotine 21mg patch - 24 hr TD SCH (07:10)
[2022-02-08] MEDS: acetaminophen 325mg tablet PO PRN (07:21)
--- NOTE | 2022-02-08 07:22 | NUR ---
PRNs Administered: PRN Tylenol 650mg Interventions Offered: Pt. continues to report chronic bilateral foot pain. PRN Tylenol was administered. Will continue to monitor. Response to Medication: Pt. thanked this underwriter and will continue to monitor closely.
[2022-02-08 08:00] VITALS: BP 119/84
[2022-02-08] MEDS ORDERED: MULT-25 PO (10:14)
[2022-02-08] MEDS ORDERED: RISP2TAB85 PO (10:14)
[2022-02-08] MEDS ORDERED: OLAN10TA73 PO (10:14)
[2022-02-08] MEDS ORDERED: TRIH2TAB3 PO (10:14)
--- NOTE | 2022-02-08 10:35 | NUR ---
PRNs Administered: Ativan 1mg Interventions Offered: Pt. reported and exhibited anxiety r/t his desire to discharge. He presented with pacing and frequently yelled out with frustration, "Can I just go already?!" Pt. was able to be redirected and PRN Ativan was administered. Response to Medication: Pt. thanked this medical underwriter for the medication, will continue to monitor.
--- NOTE | 2022-02-08 10:45 | NUR ---
Discharge Note: Pt. was escorted off the unit accompanied by staff and security at 1045 to [facility] which will be taking him to [place] where he will be staying with a friend. Pt. will roller picker his ordered medications at his preferred pharmacy in [place]. His belongings were inventoried and returned to him. This technical proposal writer reviewed pt's discharge instructions and medications with him and he reported understanding. Pt. is able to contract for safety.
== END 2022-02-08 10:45 | disposition home or self-care (01) | DRG 750 ==
LOC: ER 10:52 → ED HOLD 02-05 09:27 → ADULT MH 02-05 10:34
PROVIDERS: ADMIT Psychiatry & Neurology Psychiatry; ATTEND Psychiatry & Neurology Psychiatry
DX: F20.9 Schizophrenia, unspecified (principal); U07.1 COVID-19; R45.851 Suicidal ideations; Z59.00 Homelessness unspecified; Z91.14 Patient's other noncompliance with medication regimen; F12.10 Cannabis abuse, uncomplicated; D64.9 Anemia, unspecified; R45.1 Restlessness and agitation; F10.10 Alcohol abuse, uncomplicated; G47.00 Insomnia, unspecified; R63.6 Underweight; F15.10 Other stimulant abuse, uncomplicated; F17.210 Nicotine dependence, cigarettes, uncomplicated; F31.9 Bipolar disorder, unspecified; F41.9 Anxiety disorder, unspecified; Z56.0 Unemployment, unspecified; Z91.51 Personal history of suicidal behavior; Z68.1 Body mass index [BMI] 19.9 or less, adult; Z79.899 Other long term (current) drug therapy; Z71.6 Tobacco abuse counseling
CPT/HCPCS: 36415; 80053; 80061; 80305; 80320; 81003; 83036; 85025; 87081; 87635; 99285; C9803; J1200; J1630; J2060

== ENCOUNTER 2023-02-23 17:40 | Emergency (ER) | payer SELFPAY ==
[~2023-02-23] VITALS: Ht 182.9 cm; Wt 73.2 kg
[~2023-02-23 17:40] MED LIST changes: +MULT-25 PO; +OLAN10TA73 PO; -OLAN15TA35 PO
[2023-02-23 18:12] LABS: URINE AMPHETAMINE SCREEN POSITIVE (Neg); URINE BARBITUATE SCREEN NEGATIVE (Neg); URINE BENZODIAZEPINES SCREEN NEGATIVE (Neg); URINE CANNABINOID SCREEN POSITIVE (Neg); URINE COCAINE SCREEN NEGATIVE (Neg); URINE METHADONE SCREEN NEGATIVE (Neg); URINE OPIATE SCREEN NEGATIVE (Neg); URINE PHENCYCLIDINE SCREEN NEGATIVE (Neg)
[2023-02-23 18:14] LABS: EOSINOPHILS # (AUTO) 0.2 X10'3 (0-0.9); RED CELL DISTRIBUTION WIDTH 13.9 % (11.5-14.5)
[2023-02-23 18:16] LABS: BASOPHILS # (AUTO) 0.1 X10'3 (0-0.2); BASOPHILS % (AUTO) 0.5 % (0-1); EOSINOPHILS % (AUTO) 1.6 % (0-6); HEMATOCRIT 41.5 % (42.0-52.0); HEMOGLOBIN 14.2 g/dl (14.0-17.9); LYMPHOCYTES # (AUTO) 2.2 X10'3 (1.1-4.8); LYMPHOCYTES % (AUTO) 23.1 % (21-51); MEAN CORPUSCULAR HEMOGLOBIN 29.7 PG (27.0-31.0); MEAN CORPUSCULAR HGB CONC 34.2 g/dL (33.0-36.5); MEAN CORPUSCULAR VOLUME 86.8 FL (78-98); MEAN PLATELET VOLUME 6.3 FL (7.4-10.4); MONOCYTES # (AUTO) 1.3 X10'3 (0-0.9); MONOCYTES % (AUTO) 13.3 % (2-12); NEUTROPHILS # (AUTO) 5.9 X10'3 (1.8-7.7); NEUTROPHILS % (AUTO) 61.5 % (42-75); PLATELET COUNT 310 X10'3 (140-440); RED BLOOD COUNT 4.78 X10'6 (4.70-6.10); WHITE BLOOD COUNT 9.6 X10'3 (4.5-11.0)
[2023-02-23 18:26] LABS: ALANINE AMINOTRANSFERASE 45 U/L (12-78); ALBUMIN 3.8 G/DL (3.4-5.0); ALKALINE PHOSPHATASE 73 IU/L (46-116); ANION GAP 11 (8-16); ASPARTATE AMINO TRANSFERASE 25 U/L (10-37); BILIRUBIN,TOTAL 0.3 MG/DL (0.1-1.0); BLOOD UREA NITROGEN 9 MG/DL (7-18); BUN/CREATININE RATIO 10.7 (10.0-20.0); CALCIUM 8.9 MG/DL (8.5-10.1); CHLORIDE 101 MMOL/L (99-107); CREATININE 0.84 MG/DL (0.60-1.10); GLUCOSE 106 MG/DL (70-104); POTASSIUM 3.7 MMOL/L (3.5-5.1); SODIUM 139 MMOL/L (135-145); TOTAL CARBON DIOXIDE 27.4 MMOL/L (24-32); TOTAL PROTEIN 7.8 G/DL (6.4-8.2); eGFR > 90 ML/MIN
[2023-02-23 18:35] LABS: ETHANOL < 0.010 GM/DL (0.0-0.010)
--- NOTE | 2023-02-23 19:31 | NUR ---
The patient moved to bed 25 from the ER lobby. He appears sad and depressed. He stated that [facility] brought him to the ER. He stated he has been feeling suicidal and when asked if he had a plan he replied, "To jump off a bridge, stab myself, or get hit a car. I haven't had food for 4 days" He stated that he is not get his disability and has to reapply for it. He has an ankle monitor on. He reports he has been homeless and [facility]. He is calm and cooperative. He reports voices and seeing shadows. He denied methamphetamine use but his tox screen is positive.
[2023-02-23] MEDS ORDERED: NO HOME MEDS (19:49)
--- NOTE | 2023-02-23 20:08 | NUR ---
The patient appears to be sleeping
--- NOTE | 2023-02-23 20:43 | NUR ---
PACKET FAXED TO [facility]
--- NOTE | 2023-02-23 21:14 | NUR ---
The patient is speaking with ER registration staff.
--- NOTE | 2023-02-23 23:57 | NUR ---
The patient appears to be sleeping
--- NOTE | 2023-02-24 01:49 | NUR ---
THe patient appears to be sleeping
--- NOTE | 2023-02-24 03:19 | NUR ---
The patient appears to be sleeping
--- NOTE | 2023-02-24 05:09 | NUR ---
The patient appears to be sleeping
[2023-02-24 05:33] VITALS: BP 116/78
--- NOTE | 2023-02-24 07:00 | NUR ---
Pt awake lying on his bed. Pt had the blankets pulled up to his neck. Pt endorses SI "I'm feeling suicidal ma'am." Pt presents with a depressed affect. He declined breakfast. Pt is waiting for [facility] to assess. Addendum: 02/24/23 at 1244 by LEOBARDO Pt was a frequent flyer about a year ago, when board writer asked where he has been he stated [facility]. 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
--- NOTE | 2023-02-24 09:00 | NUR ---
Patient resting comfortably, rr even and unlabored.
--- NOTE | 2023-02-24 09:30 | NUR ---
[facility] clinician will be discharging patient. Setting patient up with resources and a peer counselor. Will continue to monitor.
--- NOTE | 2023-02-24 12:12 | NUR ---
Pt sitting on side of bed eating lunch.
--- NOTE | 2023-02-24 14:30 | NUR ---
Pt is being discharged and will take a taxi over to his combat systems officer per [facility] clinician.
--- NOTE | 2023-02-24 14:31 | NUR ---
ETA FOR TAXI [id number]
== END 2023-02-24 16:35 | disposition still patient (30) ==
LOC: ER 17:40
DX: R45.851 Suicidal ideations (principal); Z20.822 Contact with and (suspected) exposure to COVID-19; F32.A Depression, unspecified; F17.200 Nicotine dependence, unspecified, uncomplicated; F12.10 Cannabis abuse, uncomplicated; F15.10 Other stimulant abuse, uncomplicated; Z56.0 Unemployment, unspecified; Z59.00 Homelessness unspecified; F20.9 Schizophrenia, unspecified; Z79.899 Other long term (current) drug therapy
CPT/HCPCS: 36415; 80053; 80305; 80320; 84443; 85025; 87811; 99285